=== PATIENT | male | born 1935 | race Caucasian/White ===

== ENCOUNTER 2017-11-02 09:49 | Inpatient (IN) | payer MEDICARE, MEDICAID ==
--- NOTE | 2017-11-02 10:27 | C.PDOC ---
History Of Present Illness 81-year-old male BIBA from for evaluation after two falls. As per EMS, patient had 2 fall at home, states he felt dizzy/light headed and fell to floor twice ( unable to describe specifics of falls). Patient has limited Polish, and is a poor historian. He is currently complaining of upper and mid back pain as well as generalized weakness. He denies chest pain, SOB, abdominal pain. - HPI Time Seen by Provider: 11/02/17 10:03 Chief Complaint (Nursing): Trauma History Per: Patient History/Exam Limitations: language barrier Injury Occurred (Timing): Just Before Arrival Past Medical History Reviewed: Historical Data, Nursing Documentation, Vital Signs Vital Signs: Last Vital Signs Temp 97.7 F 11/02/17 15:06 Pulse 73 11/02/17 15:06 Resp 20 11/02/17 15:06 BP 149/69 11/02/17 15:06 Pulse Ox 99 11/02/17 16:28 - Medical History PMH: Benign Prostatic Hyperplasia, HTN, Hypercholesterolemia, Seizures Family History: States: No Known Family Hx - Social History Hx Alcohol Use: No Hx Substance Use: No Review Of Systems Constitutional: Negative for: Fever Cardiovascular: Negative for: Chest Pain, Palpitations Respiratory: Negative for: Shortness of Breath Gastrointestinal: Negative for: Vomiting, Abdominal Pain Musculoskeletal: Negative for: Neck Pain, Back Pain Skin: Negative for: Rash Neurological: Positive for: Dizziness. Negative for: Weakness, Numbness, Headache Physical Exam - Physical Exam Appears: Well, Non-toxic, No Acute Distress Skin: Normal Color, Warm, Dry, No Rash Head: Atraumatic, Normacephalic, No Swelling, No Abrasion Eye(s): bilateral: Normal Inspection, PERRL, EOMI Oral Mucosa: Moist Neck: Normal, Normal ROM, No Midline Cervical Tenderness, No Paracervical Tenderness, No Step Off Deformity, Supple Cardiovascular: Rhythm Regular, No Murmur Respiratory: Normal Breath Sounds, No Rales, No Rhonchi, No Wheezing Gastrointestinal/Abdominal: Normal Exam, Bowel Sounds, Soft, No Tenderness Back: Other (Tenderness to palpation at the mid thoracic spine (approx T3-5 levels) and B/L posterior shoulders) Extremity: No Tenderness, No Pedal Edema, No Calf Tenderness, Capillary Refill ( < 2 sec all digits ), No Deformity (no abrasions/contusions of extremities noted ), Other (mild tenderness with pelvic rocking) Extremity: Bilateral: Normal Color And Temperature, Normal ROM Neurological/Psych: Normal Speech, Normal Cranial Nerves, Normal Motor, Normal Sensation, Normal Reflexes, Other (awake, alert, able to follow commands ) ED Course And Treatment - Laboratory Results Result Diagrams: 11/02/17 10:38 11/02/17 12:36 ECG: Interpreted By Me, Viewed By Me ECG Rhythm: Sinus Rhythm ECG Interpretation: No Acute Changes Interpretation Of ECG: Normal axis. No acute ST/T changes Rate From EC (bpm) O2 Sat by Pulse Oximetry: 99 (RA) Pulse Ox Interpretation: Normal - Other Rad CXR X-Ray: Viewed By Me, Read By Radiologist Interpretation: Accession No. : [id number]. Patient Name / ID : NILDA CARRERO V / [id number]. Exam Date : 11/02/2017 10:29:49 ( Approved ). Study Comment : Sex / Age : M / 81Y. Creator : Melvin Silver MD. Dictator : Senior Client Advisor : Title I Math Tutor : Melvin Silver MD. Approver2 : Report Date : 11/02/2017 13:17:01. My Comment : . PROCEDURE: CHEST RADIOGRAPH, 1 VIEW. HISTORY: FALL, DIZZY. COMPARISON: 05/16/2012. FINDINGS: LUNGS: Mild bibasilar atelectasis. PLEURA: No pneumothorax or pleural fluid seen. CARDIOVASCULAR: Heart size mildly enlarged. Interval placement bipolar pacemaker/ defibrillator. OSSEOUS STRUCTURES: No significant abnormalities. VISUALIZED UPPER ABDOMEN: Normal. OTHER FINDINGS: None. IMPRESSION: Mild bibasilar atelectasis. Cardiomegaly. Interval placement bipolar pacemaker defibrillator. THORACIC XRAY X-Ray: Viewed By Me, Read By Radiologist Interpretation: Accession No. : [id number]. Patient Name / ID : NILDA CARRERO / [id number]. Exam Date : 11/02/2017 10:49:49 ( Approved ). Study Comment : Sex / Age : M / 81Y. Creator : Melvin Silver MD. Dictator : Senior Client Advisor : Title I Math Tutor : Melvin Silver MD. Approver2 : Report Date : 11/02/2017 13:24:17. My Comment : . HISTORY: back pain after fall. COMPARISON: Correlation made with concurrent radiographs of the lumbar spine. . FINDINGS: BONES: There are anterior wedge deformities of at least a 2 upper /mid thoracic segments age-indeterminate. In addition, there are mild mild chronic appearing fish-mouth endplate deformities of several lower thoracic segments. DISC SPACES: Mild multilevel degenerative spondylosis. Changes include varying degrees of disc space narrowing endplate eburnation and anterolateral osteophyte formation. SOFT TISSUES: Normal. OTHER FINDINGS: None. IMPRESSION: There are anterior wedge deformities of at least a 2 upper/ mid thoracic segments age-indeterminate. In addition, there are mild mild chronic appearing fish-mouth endplate deformities of several lower thoracic segments. . If symptoms persist or acute fracture suspected clinically recommend followup CT scan. Note that this report was placed in [facility] review folder for followup LS SPINE XRAY X-Ray: Viewed By Me, Read By Radiologist Interpretation: Accession No. : [id number]. Patient Name / ID : NILDA CARRERO / [id number]. Exam Date : 11/02/2017 10:49:49 ( Approved ). Study Comment : Sex / Age : M / 81Y. Creator : Melvin Silver MD. Dictator : Senior Client Advisor : Title I Math Tutor : Melvin Silver MD. Approver2 : Report Date : 11/02/2017 13:15:54. My Comment : . PROCEDURE: Radiographs of the Lumbar Spine. HISTORY: Back pain following fall. COMPARISON: No prior study available for comparison however correlation made with concurrent radiographs of the thoracic spine. FINDINGS: BONES: The current study reveals a chronic appearing wedge compression fracture of the L3 segment with mild multilevel fish -mouth endplate deformities of the remaining upper lumbar and lower thoracic segments. DISC SPACES: Varying degrees of disc space narrowing particularly notable at the L5-S1 and L2-L3 levels. Endplate eburnation. The facets also hypertrophic L5-S1 through the L2-L3 levels. Multilevel anterolateral partially bridging osteophyte formation present. OTHER FINDINGS: Note made of multiple radiopaque radiation implant seeds distributed throughout the prostate gland. 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 Multilevel degenerative spondylosis with varying degrees of disc space narrowing, endplate eburnation with anterolateral partially bridging osteophyte formation. See above discussion for additional details and findings. HIPS/PELVIS X-Ray: Interpreted by Me, Viewed By Me (no fracture/listhesis) - CT Scan/US CT HEAD Other Rad Studies (CT/US): Read By Radiologist, Radiology Report Reviewed CT/US Interpretation: Accession No. : [id number]. Patient Name / ID : NILDA CARRERO V / [id number]. Exam Date : 11/02/2017 11:04:06 ( Approved ). Study Comment : Sex / Age : M / 81Y. Creator : Melvin Silver MD. Dictator : Senior Client Advisor : Title I Math Tutor : Melvin Silver MD. Approver2 : Report Date : 11/02/2017 12:25:02. My Comment : . PROCEDURE: CT HEAD WITHOUT CONTRAST. HISTORY: fall, dizziness. COMPARISON: No prior pacs. TECHNIQUE: Axial computed tomography images were obtained through the head/ brain without intravenous contrast. Radiation dose: Total exam DLP = 827.26 mGy-cm. This CT exam was performed using one or more of the following dose reduction techniques: Automated exposure control, adjustment of the mA and/or kV according to patient size, and/or use of iterative reconstruction technique. FINDINGS: HEMORRHAGE: No acute parenchymal, subarachnoid nor extra-axial hemorrhage. BRAIN: Significant diffuse/confluent chronic white matter ischemic changes seen extending peripherally into the deep and subcortical white matter both cerebral hemispheres. There is extension of these changes into the white matter tracts of both basal nuclei. 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 No obvious parenchymal nor extra-axial mass or collection seen on this noncontrast study. Moderate to significant generalized volume loss. Vascular calcifications both carotid siphons vertebral arteries and basilar artery. VENTRICLES: No obstructive hydrocephalus. CALVARIUM: Calvarium intact. PARANASAL SINUSES: Minimal mucosal thickening seen within multiple ethmoid air cells. . MASTOID AIR CELLS : Unremarkable as visualized. No inflammatory changes. OTHER FINDINGS: Changes of bilateral cataract surgery. . The mild exophthalmos. IMPRESSION: Significant diffuse/ confluent white matter, basal nuclei and probable brainstem ischemic changes. Moderate to significant generalized volume loss. CT THORACIC Other Rad Studies (CT/US): Read By Radiologist, Radiology Report Reviewed CT/US Interpretation: Accession No. : [id number]. Patient Name / ID : NILDA CARRERO V / [id number]. Exam Date : 11/02/2017 14:20:46 ( Approved ). Study Comment : Sex / Age : M / 81Y. Creator : Melvin Silver MD. Dictator : Senior Client Advisor : Title I Math Tutor : Melvin Silver MD. Approver2 : Report Date : 11/02/2017 15:45:56. My Comment : . PROCEDURE: CT Thoracic Spine without contrast. HISTORY: Rule out thoracic fx. COMPARISON: Correlation made with concurrent radiographs of the thoracic spine. Correlation also made with concurrent CT scan of the lumbar spine. TECHNIQUE: Axial computed tomography images were obtained of the thoracic spine without intravenous contrast. Coronal and sagittal reformatted images were created and reviewed. Radiation dose: Total exam DLP = 448.62 mGy-cm. This CT exam was performed using one or more of the following dose reduction techniques: Automated exposure control, adjustment of the mA and/or kV according to patient size, and/or use of iterative reconstruction technique. FINDINGS: VERTEBRAE: The current study reveals no acute compression fractures no retropulsed fragments. . Vertebral bodies exhibit relatively normal stature. Vertebral bodies and facets normally aligned. DISCS/SPINAL CANAL/NEURAL FORAMINA: Minor multilevel degenerative spondylosis with small marginal anterior/anterolateral osteophyte formation. Disc space heights relatively maintained. No disc herniation nor significant disc bulge. PARASPINAL SOFT TISSUES: Unremarkable. OTHER FINDINGS: Note made of asymmetric wall thickening of the distal aspect of the esophagus which is nonspecific. . Endoscopy followup recommended prudent to exclude esophagitis or other intrinsic/invasive wall lesion including esophageal carcinoma. . Large exophytic right renal cyst again noted. There are at least 2 hepatic cysts. Follow-up nonemergent abdominal ultrasound could be performed for further evaluation. . Suspect duodenal diverticulum. Bibasilar atelectasis and or scarring changes. IMPRESSION: No acute fractures. . Wall thickening of the distal aspect of the esophagus and EG junction. Findings could be due to esophagitis however other intrinsic/ invasive wall lesion including esophageal carcinoma should be excluded. Endoscopy followup recommended. See above discussion for additional findings. CT LUMBAR Other Rad Studies (CT/US): Read By Radiologist, Radiology Report Reviewed CT/US Interpretation: Accession No. : [id number]. Patient Name / ID : NILDA CARRERO V / [id number]. Exam Date : 11/02/2017 14:18:20 ( Approved ). Study Comment : Sex / Age : M / 81Y. Creator : Melvin Silver MD. Dictator : Senior Client Advisor : Title I Math Tutor : Melvin Silver MD. Approver2 : Report Date : 11/02/2017 15:40:11. My Comment : . PROCEDURE: CT Lumbar Spine without contrast. HISTORY: r rule out lumbar fracture. COMPARISON: None. TECHNIQUE: Axial computed tomography images were obtained of the lumbar spine without the use of intravenous contrast. Coronal and sagittal reformatted images were created and reviewed. Radiation dose: Total exam DLP = 253.19 mGy- cm. This CT exam was performed using one or more of the following dose reduction techniques: Automated exposure control, adjustment of the mA and/or kV according to patient size, and/or use of iterative reconstruction technique. FINDINGS: VERTEBRAE: Chronic appearing compression fracture L3 segment with anterior bridging osteophyte formation between the L2 and L3 segments. Minimal retropulsion posterior superior corner results in mild flattening of the ventral surface of thecal sac reducing the canal slightly. The remaining vertebral bodies otherwise exhibit normal stature. Vertebral bodies and facets normally aligned. DISCS/SPINAL CANAL/NEURAL FORAMINA: There is a small central and bilateral disc bulge L5-S1 level that extends slightly into the proximal inferior margins of both exit foramina and results in mild flattening of the ventral surface of thecal sac. . The central canal is slightly narrowed. Facets are mildly hypertrophic. Exit foramina are narrowed bilaterally. Minor posterior disc space narrowing seen at the L4-L5 level. Small broad-based bulge of the posterior annulus also flattens the ventral surface of thecal sac and extends into the proximal inferior margins of both exit foramina. Central canal is mild to moderately stenotic. Exit foramina are narrowed bilaterally. At the L2-L3 level, there is marrow minor broad-based bulge of the posterior annulus with more prominent bulging seen in the proximal aspect left exit foramen. Facets are slightly overgrown. Central canal appears adequate. Exit foramina adequate. At the L2-L3 level, disc material extends inferiorly to the partially collapsed superior L3 endplate. No disc herniation or significant disc bulge. Facets are slightly overgrown. Exit foramina adequate. PARASPINAL SOFT TISSUES: Paraspinal soft tissues unremarkable. Note made of a large exophytic cyst upper pole right kidney. There also appears to be a cyst posterior medial aspect right lobe liver which measures approximately 14 mm. The follow-up nonemergent abdominal ultrasound could be performed if further evaluation is required. OTHER FINDINGS: None. IMPRESSION : No acute fractures. Chronic anterior wedge compression fracture L3 segment as described. Mild multilevel degenerative spondylosis Progress Note: Blood work, EKG, Chest X-Ray, UA, XRays of thoracis and lumbar spine, Xrays of hips/pelvis ordered and reviewed. Patient's Na is 121, small IV NS bolus of 250 ml given and CMP repeated - NA improved to 124. Patient's son arrived in ED, states patient has been feeling weak for the past several days. Apparently also fell 3 days ago at home, and has h/o recurrent falls. PMD Dr. Jay Maciel. - Physician Consult Information Physician Contacted: Shawn Shook Outcome Of Conversation: Discussed patient with Dr. Shook (covers for Kim Maciel), agrees with admission for recurrent falls, hyponatremia, generalized weakness, acute vs chronic thoracic fxs. He is aware CT scans of thoracic/lumbar spine are pending. Disposition - Disposition Disposition: HOSPITALIZED Disposition Time: 13:37 Condition: FAIR - Clinical Impression Clinical Impression: Hyponatremia, Generalized weakness, Recurrent falls Critical Care Time - Critical Care Note Total Time (in mins): 35 Documented critical care: time excludes all time spent performing seperately billable procedures. - Scribe Statement The provider has reviewed the documentation as recorded by the Scribe (Jolene Dangelo) All medical record entries made by the Scribe were at my direction and personally dictated by me. I have reviewed the chart and agree that the record accurately reflects my personal performance of the history, physical exam, medical decision making, and the department course for this patient. I have also personally directed, reviewed, and agree with the discharge instructions and disposition. Decision To Admit - Pt Status Changed To: Hospital Disposition Of: Inpatient - Admit Certification Admit to Inpatient:: After my assessment, the patient will require hospitalization for at least two midnights. This is because of the severity of symptoms shown, intensity of services needed, and/or the medical risk in this patient being treated as an outpatient. - InPatient: Physician Admission Certification: I certify that this patient requires 2 or more midnights of care for the following reason:: see notes - . Bed Request Type: Telemetry Admitting Physician: Shawn Shook Patient Diagnosis: Hyponatremia, Generalized weakness, Recurrent falls
[2017-11-02 10:46] LABS: BASO # 0.1 K/uL (0.0-0.2); BASO % 1.5 % (0.0-2.0); EOS # 0.1 K/uL (0.0-0.7); EOS % 1.5 % (0.0-4.0); LYMPH # 0.8 K/uL (1.0-4.3); LYMPH % 11.5 % (20.0-40.0); MEAN CELL VOLUME 86.5 fL (80.0-94.0); MEAN CORPUSCULAR HEMOGLOBIN 30.5 pg (27.0-31.0); MEAN CORPUSCULAR HGB CONC 35.2 g/dL (33.0-37.0); MEAN PLATELET VOLUME 7.8 fL (7.2-11.7); MONO # 1.1 K/uL (0.0-0.8); MONO % 15.8 % (0.0-10.0); NEUT % 69.7 % (50.0-75.0); NRBC % 0.1 % (0.0-2.0); RBC 3.62 Mil/uL (4.40-5.90); RED CELL DISTRIBUTION WIDTH 12.2 % (11.5-14.5); WHITE BLOOD COUNT 7.1 K/uL (4.8-10.8)
[2017-11-02 10:53] LABS: INR 1.1; PROTHROMBIN TIME 12.4 SECONDS (9.7-12.2)
[2017-11-02 10:56] LABS: ALB/GLOB RATIO 1.4 (1.0-2.1); ALBUMIN 3.7 g/dL (3.5-5.0); ALT/SGPT 23 U/L (21-72); AST/SGOT 23 U/L (17-59); BLOOD UREA NITROGEN 16 mg/dL (9-20); GFR AFRICAN-AMERICAN > 60; GFR NON-AFRICAN AMERICAN > 60
[2017-11-02 10:58] LABS: URINE BACTERIA RARE (<OCC); URINE BILIRUBIN NEGATIVE (NEGATIVE); URINE BLOOD NEGATIVE (NEGATIVE); URINE CLARITY Clear (Clear); URINE COLOR Yellow (YELLOW); URINE GLUCOSE (UA) NORMAL (Normal); URINE LEUKOCYTE ESTERASE TRACE Leu/uL (Negative); URINE PROTEIN 1+ mg/dL (NEGATIVE); URINE UROBILINOGEN NORMAL mg/dL (0.2-1.0)
[2017-11-02] MEDS ORDERED: Sodium Chloride 0.9% 250 ML IV ONE (11:08)
[2017-11-02 11:36] LABS: SQUAMOUS EPITHIAL < 1 /hpf (0-5)
[2017-11-02] MEDS ORDERED: Potassium Chloride 20 mEq ER Tab PO STA ×2 (12:16)
--- NOTE | 2017-11-02 12:26 | CT ---
PROCEDURE: CT HEAD WITHOUT CONTRAST. HISTORY: fall, dizziness COMPARISON: No prior pacs TECHNIQUE: Axial computed tomography images were obtained through the head/brain without intravenous contrast. Radiation dose: Total exam DLP = 827.26 mGy-cm. This CT exam was performed using one or more of the following dose reduction techniques: Automated exposure control, adjustment of the mA and/or kV according to patient size, and/or use of iterative reconstruction technique. FINDINGS: HEMORRHAGE: No acute parenchymal, subarachnoid nor extra-axial hemorrhage. BRAIN: Significant diffuse/confluent chronic white matter ischemic changes seen extending peripherally into the deep and subcortical white matter both cerebral hemispheres. There is extension of these changes into the white matter tracts of both basal nuclei. 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 No obvious parenchymal nor extra-axial mass or collection seen on this noncontrast study. Moderate to significant generalized volume loss. Vascular calcifications both carotid siphons vertebral arteries and basilar artery. VENTRICLES: No obstructive hydrocephalus. CALVARIUM: Calvarium intact PARANASAL SINUSES: Minimal mucosal thickening seen within multiple ethmoid air cells. . MASTOID AIR CELLS: Unremarkable as visualized. No inflammatory changes. OTHER FINDINGS: Changes of bilateral cataract surgery. . The mild exophthalmos. IMPRESSION: Significant diffuse/ confluent white matter, basal nuclei and probable brainstem ischemic changes. Moderate to significant generalized volume loss.
[2017-11-02] MEDS ORDERED: Potassium Chloride 20 mEq ER Tab PO ONE (12:33)
[2017-11-02 12:51] LABS: ALB/GLOB RATIO 1.3 (1.0-2.1); ALBUMIN 3.7 g/dL (3.5-5.0); ALT/SGPT 26 U/L (21-72); AST/SGOT 23 U/L (17-59); BLOOD UREA NITROGEN 16 mg/dL (9-20); CALCIUM 9.2 mg/dl (8.6-10.4); GFR AFRICAN-AMERICAN > 60; GFR NON-AFRICAN AMERICAN > 60
--- NOTE | 2017-11-02 13:17 | RAD ---
PROCEDURE: Radiographs of the Lumbar Spine. HISTORY: Back pain following fall. COMPARISON: No prior study available for comparison however correlation made with concurrent radiographs of the thoracic spine. FINDINGS: BONES: The current study reveals a chronic appearing wedge compression fracture of the L3 segment with mild multilevel fish-mouth endplate deformities of the remaining upper lumbar and lower thoracic segments. DISC SPACES: Varying degrees of disc space narrowing particularly notable at the L5-S1 and L2-L3 levels. Endplate eburnation. The facets also hypertrophic L5-S1 through the L2-L3 levels. Multilevel anterolateral partially bridging osteophyte formation present. OTHER FINDINGS: Note made of multiple radiopaque radiation implant seeds distributed throughout the prostate gland. 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 Multilevel degenerative spondylosis with varying degrees of disc space narrowing, endplate eburnation with anterolateral partially bridging osteophyte formation. See above discussion for additional details and findings.
--- NOTE | 2017-11-02 13:18 | RAD ---
PROCEDURE: CHEST RADIOGRAPH, 1 VIEW HISTORY: FALL, DIZZY COMPARISON: 05/16/2012. FINDINGS: LUNGS: Mild bibasilar atelectasis. PLEURA: No pneumothorax or pleural fluid seen. CARDIOVASCULAR: Heart size mildly enlarged. Interval placement bipolar pacemaker/ defibrillator. OSSEOUS STRUCTURES: No significant abnormalities. VISUALIZED UPPER ABDOMEN: Normal. OTHER FINDINGS: None. IMPRESSION: Mild bibasilar atelectasis. Cardiomegaly. Interval placement bipolar pacemaker defibrillator.
--- NOTE | 2017-11-02 13:26 | RAD ---
HISTORY: back pain after fall COMPARISON: Correlation made with concurrent radiographs of the lumbar spine. . FINDINGS: BONES: There are anterior wedge deformities of at least a 2 upper/mid thoracic segments age-indeterminate. In addition, there are mild mild chronic appearing fish-mouth endplate deformities of several lower thoracic segments. DISC SPACES: Mild multilevel degenerative spondylosis. Changes include varying degrees of disc space narrowing endplate eburnation and anterolateral osteophyte formation. SOFT TISSUES: Normal. OTHER FINDINGS: None. IMPRESSION: There are anterior wedge deformities of at least a 2 upper/mid thoracic segments age-indeterminate. In addition, there are mild mild chronic appearing fish-mouth endplate deformities of several lower thoracic segments. . If symptoms persist or acute fracture suspected clinically recommend followup CT scan. Note that this report was placed in [facility] review folder for followup
[2017-11-02] MEDS ORDERED: Sodium Chloride 0.9% 1,000 ML IV ONE (13:33)
--- NOTE | 2017-11-02 14:09 | RAD ---
PROCEDURE: Radiographs of the pelvis and bilateral hips HISTORY: Status post fall with pain COMPARISON: Correlation made with concurrent radiographs of the lumbar spine FINDINGS: BONES: Pelvis: Unremarkable. Right hip:Unremarkable. Left hip:Unremarkable. JOINTS: Right hip: Minimal joint space narrowing with slight spurring superolateral margin right acetabular roof. Left hip: Minimal joint space narrowing with slight spurring superolateral margin left acetabular roof. Sacroiliac Joints: Unremarkable. Pubic symphysis: Unremarkable. SOFT TISSUES: Note again made of multiple small radiopaque radiation implant seeds distributed throughout the prostate gland OTHER FINDINGS: None. IMPRESSION: No evidence of acute displaced fracture nor dislocation. Minimal spurring of the superolateral margins of the acetabular roofs and minimal joint space narrowing.
--- NOTE | 2017-11-02 14:57 | CP.PCM.HP ---
History of Present Illness - History of Present Illness History of Present Illness: COMPREHENSIVE HISTORY & PHYSICAL EXAM HPI Patient is a 81 years old [place]ian male with a history of hypertension on diuretics had a couple of syncopal episode at home. Patient was brought to the emergency room workup showed negative neurocardiac system. Patient was complaining of back pain and x-ray showed some bad shape fractures in the vertebra and CAT scan of the spine is pending. Laboratory showed the patient had a low sodium of 123. Patient was given some IV bolus sodium still remains about 124. Urine osmolality is very low Patient has history of hypertension and a history of previous history of syncopal episodes PAST HIST. Hypertension, hypertrophic prostate PERSONAL HIST: Smoking. N Alcohol. N Allergy N Travel_- . FAMILY HIST : ROS : Constitutional: Negative for weight change, chills, night sweats, fatigue and usage of assist device. Eyes: Negative for redness, swelling, itching, discharge, vision changes, blurry vision, double vision, glaucoma, cataracts, Ears: Negative for hearing loss, ringing, , tinnitus, vertigo Nose: Negative for rhinorrhea, stuffiness, sniffing, itching, postnasal drip, discoloration, nasal congestion and epistaxis. Throat: Negative for throat clearing, sore throat, hoarseness, difficulty swallowing and difficulty speaking. Respiratory: Negative for cough, , sputum production, chest tightness, wheezing, pleuritic chest pain ,daytime somnolence, chronic cough, hemoptysis, snoring at night, Cardiovascular: Negative for chest pain, palpitations, orthopnea, PND, Edema of legs, leg cramps, angina, claudication, , irregular heartbeat, Neurology: Negative for irritability, muscle weakness, numbness and tingling, seizures, tremors, migraines, slurred speech, recurrent headaches Gastrointestinal: Negative for difficulty swallowing, diarrhea, constipation, black stools, rectal bleeding, nausea, flatulence, reflux, poor appetite, changes in bowel habits, abdominal pain Genitourinary: Negative for frequent urination, hematuria, discharge, incontinence, urinary retention, frequent UTI, Psychiatric: Negative for depression, anxiety/panic, suicidal tendencies, Musculoskeletal: Negative for swollen joints, back pain, , neck pain, morning stiffness of joints, . Skin: Negative for rash, ulcers, itching, dry skin and pigmented lesions. P/E: Constitutional: Appears stated age and in no apparent distress. Head: Normocephalic. Ears: External ear canals patent without inflammation. Tympanic membranes intact with normal light reflex and landmark. Eyes: Pupils are central, bilaterally equal, symmetrical and reacts to light with normal movements and no icterus or pallor. Nose: External nares are patent. Mucosa is pink Mouth-Throat: Good general appearance and condition. No post-pharyngeal/oropharyngeal erythema and tonsillar hypertrophy. Good dental hygiene. Neck-Lymphatic: Neck is supple with normal ROM, no thyromegaly, lymph nodes or masses. JVD is normal with no carotid bruit. Lungs: Clear to percussion and auscultation with bilateral normal air entry. Cardiovascular: S1 and S2 are normal with no murmurs, gallops and rub. GI Exam: No hepatomegaly. Abdomen is soft and non-tender. No Organomegaly , masses or hernias are evident and bowel sounds are normal and active. Neurology: Higher function and all cranial nerves intact, with no gross motor or sensory deficit. Superficial and deep reflexes are normal with downwards planters. No cerebellar deficit with normal gait. Musculoskeletal: No tender spots with normal curvature of the spine with no swelling or restricted ROM of the small and large joints. Extremities: Homans sign absent. Intact pulses with no pitting edema, calf tenderness or skin color changes. Skin: No rash, eruptions or abnormal skin pigmentation LAB/RADIOLOGY: ASSESMENT : 2 syncopal episode Hyponatremia probably secondary to hydrochlorothiazide PLAN: See orders Present on Admission - Present on Admission Any Indicators Present on Admission: No Past Patient History - Past Social History Smoking Status: Never Smoked - CARDIAC Hx Hypercholesterolemia: Yes Hx Hypertension: Yes - NEUROLOGICAL Hx Seizures: Yes - PSYCHIATRIC Hx Substance Use: No Meds Allergies/Adverse Reactions: Allergies Allergy/AdvReac Type Severity Reaction Status Date / Time No Known Allergies Allergy Verified 11/02/17 10:22 Results - Vital Signs Recent Vital Signs: Last Vital Signs Temp 98.4 F 11/02/17 14:37 Pulse 72 11/02/17 14:37 Resp 18 11/02/17 14:37 BP 134/60 11/02/17 14:37 Pulse Ox 97 11/02/17 14:37 - Labs Result Diagrams: 11/02/17 10:38 11/02/17 12:36 Labs: Laboratory Results - last 24 hr 0611/02/17 11/02/17 10:38 10:38 10:38 WBC 7.1 RBC 3.62 L Hgb 11.0 L Hct 31.4 L MCV 86.5 MCH 30.5 MCHC 35.2 RDW 12.2 Plt Count 209 MPV 7.8 Neut % (Auto) 69.7 Lymph % (Auto) 11.5 L [place] % (Auto) 15.8 H Eos % (Auto) 1.5 Baso % (Auto) 1.5 Neut # (Auto) 5.0 Lymph # (Auto) 0.8 L [place] # (Auto) 1.1 H Eos # (Auto) 0.1 Baso # (Auto) 0.1 PT 12.4 H INR 1.1 APTT 27 Sodium 121 L Potassium 3.2 L Chloride 85 L Carbon Dioxide 27 Anion Gap 12 BUN 16 Creatinine 1.0 Est GFR ( Amer) > 60 Est GFR (Non-Af Amer) > 60 Random Glucose 113 H Serum Osmolality Calcium 9.0 Total Bilirubin 0.6 AST 23 ALT 23 Alkaline Phosphatase 43 Total Creatine Kinase 145 CK-MB (Mass) 1.30 Troponin I 0.0170 Total Protein 6.5 Albumin 3.7 Globulin 2.7 Albumin/Globulin Ratio 1.4 Urine Color Urine Clarity Urine pH Ur Specific [place] Urine Protein Urine Glucose (UA) Urine Ketones Urine Blood Urine Nitrate Urine Bilirubin Urine Urobilinogen Ur Leukocyte Esterase Urine WBC (Auto) Urine RBC (Auto) Ur Squamous Epith Cells Urine Bacteria Hyaline Casts Urine Osmolality Ur Random Sodium Ur Random Potassium 11/02/17 11/02/17 11/02/17 10:49 11:28 11:43 WBC RBC Hgb Hct MCV MCH MCHC RDW Plt Count MPV Neut % (Auto) Lymph % (Auto) [place] % (Auto) Eos % (Auto) Baso % (Auto) Neut # (Auto) Lymph # (Auto) [place] # (Auto) Eos # (Auto) Baso # (Auto) PT INR APTT Sodium Potassium Chloride Carbon Dioxide Anion Gap BUN Creatinine Est GFR ( Amer) Est GFR (Non-Af Amer) Random Glucose Serum Osmolality 262 L Calcium Total Bilirubin AST ALT Alkaline Phosphatase Total Creatine Kinase CK-MB (Mass) Troponin I Total Protein Albumin Globulin Albumin/Globulin Ratio Urine Color Yellow Urine Clarity Clear Urine pH 5.0 Ur Specific [place] 1.009 Urine Protein 1+ H Urine Glucose (UA) Normal Urine Ketones Negative Urine Blood Negative Urine Nitrate Negative Urine Bilirubin Negative Urine Urobilinogen Normal Ur Leukocyte Esterase Trace Urine WBC (Auto) 3 Urine RBC (Auto) < 1 Ur Squamous Epith Cells < 1 Urine Bacteria Rare Hyaline Casts 3-5 H Urine Osmolality 280 L Ur Random Sodium 22 Ur Random Potassium 23.4 11/02/17 12:36 WBC RBC Hgb Hct MCV MCH MCHC RDW Plt Count MPV Neut % (Auto) Lymph % (Auto) [place] % (Auto) Eos % (Auto) Baso % (Auto) Neut # (Auto) Lymph # (Auto) [place] # (Auto) Eos # (Auto) Baso # (Auto) PT INR APTT Sodium 124 L Potassium 3.4 L Chloride 87 L Carbon Dioxide 28 Anion Gap 11 BUN 16 Creatinine 0.9 Est GFR ( Amer) > 60 Est GFR (Non-Af Amer) > 60 Random Glucose 112 H Serum Osmolality Calcium 9.2 Total Bilirubin 0.7 AST 23 ALT 26 Alkaline Phosphatase 48 Total Creatine Kinase CK-MB (Mass) Troponin I Total Protein 6.5 Albumin 3.7 Globulin 2.8 Albumin/Globulin Ratio 1.3 Urine Color Urine Clarity Urine pH Ur Specific [place] Urine Protein Urine Glucose (UA) Urine Ketones Urine Blood Urine Nitrate Urine Bilirubin Urine Urobilinogen Ur Leukocyte Esterase Urine WBC (Auto) Urine RBC (Auto) Ur Squamous Epith Cells Urine Bacteria Hyaline Casts Urine Osmolality Ur Random Sodium Ur Random Potassium
--- NOTE | 2017-11-02 15:41 | CT ---
PROCEDURE: CT Lumbar Spine without contrast HISTORY: r rule out lumbar fracture. COMPARISON: None. TECHNIQUE: Axial computed tomography images were obtained of the lumbar spine without the use of intravenous contrast. Coronal and sagittal reformatted images were created and reviewed. Radiation dose: Total exam DLP = 253.19 mGy-cm. This CT exam was performed using one or more of the following dose reduction techniques: Automated exposure control, adjustment of the mA and/or kV according to patient size, and/or use of iterative reconstruction technique. FINDINGS: VERTEBRAE: Chronic appearing compression fracture L3 segment with anterior bridging osteophyte formation between the L2 and L3 segments. Minimal retropulsion posterior superior corner results in mild flattening of the ventral surface of thecal sac reducing the canal slightly. The remaining vertebral bodies otherwise exhibit normal stature. Vertebral bodies and facets normally aligned. DISCS/SPINAL CANAL/NEURAL FORAMINA: There is a small central and bilateral disc bulge L5-S1 level that extends slightly into the proximal inferior margins of both exit foramina and results in mild flattening of the ventral surface of thecal sac. . The central canal is slightly narrowed. Facets are mildly hypertrophic. Exit foramina are narrowed bilaterally. Minor posterior disc space narrowing seen at the L4-L5 level. Small broad-based bulge of the posterior annulus also flattens the ventral surface of thecal sac and extends into the proximal inferior margins of both exit foramina. Central canal is mild to moderately stenotic. Exit foramina are narrowed bilaterally. At the L2-L3 level, there is marrow minor broad-based bulge of the posterior annulus with more prominent bulging seen in the proximal aspect left exit foramen. Facets are slightly overgrown. Central canal appears adequate. Exit foramina adequate. At the L2-L3 level, disc material extends inferiorly to the partially collapsed superior L3 endplate. No disc herniation or significant disc bulge. Facets are slightly overgrown. Exit foramina adequate. PARASPINAL SOFT TISSUES: Paraspinal soft tissues unremarkable. Note made of a large exophytic cyst upper pole right kidney. There also appears to be a cyst posterior medial aspect right lobe liver which measures approximately 14 mm. The follow-up nonemergent abdominal ultrasound could be performed if further evaluation is required. OTHER FINDINGS: None. IMPRESSION: No acute fractures. Chronic anterior wedge compression fracture L3 segment as described. Mild multilevel degenerative spondylosis
--- NOTE | 2017-11-02 15:47 | CT ---
PROCEDURE: CT Thoracic Spine without contrast HISTORY: Rule out thoracic fx COMPARISON: Correlation made with concurrent radiographs of the thoracic spine. Correlation also made with concurrent CT scan of the lumbar spine TECHNIQUE: Axial computed tomography images were obtained of the thoracic spine without intravenous contrast. Coronal and sagittal reformatted images were created and reviewed. Radiation dose: Total exam DLP = 448.62 mGy-cm. This CT exam was performed using one or more of the following dose reduction techniques: Automated exposure control, adjustment of the mA and/or kV according to patient size, and/or use of iterative reconstruction technique. FINDINGS: VERTEBRAE: The current study reveals no acute compression fractures no retropulsed fragments. . Vertebral bodies exhibit relatively normal stature. Vertebral bodies and facets normally aligned. DISCS/SPINAL CANAL/NEURAL FORAMINA: Minor multilevel degenerative spondylosis with small marginal anterior/anterolateral osteophyte formation. Disc space heights relatively maintained. No disc herniation nor significant disc bulge. PARASPINAL SOFT TISSUES: Unremarkable. OTHER FINDINGS: Note made of asymmetric wall thickening of the distal aspect of the esophagus which is nonspecific. . Endoscopy followup recommended prudent to exclude esophagitis or other intrinsic/invasive wall lesion including esophageal carcinoma. . Large exophytic right renal cyst again noted. There are at least 2 hepatic cysts. Follow-up nonemergent abdominal ultrasound could be performed for further evaluation. . Suspect duodenal diverticulum. Bibasilar atelectasis and or scarring changes. IMPRESSION: No acute fractures. . Wall thickening of the distal aspect of the esophagus and EG junction. Findings could be due to esophagitis however other intrinsic/invasive wall lesion including esophageal carcinoma should be excluded. Endoscopy followup recommended. See above discussion for additional findings.
[2017-11-02] MEDS: Dextrose 5%/0.45% NS 1,000 ML IV SCH (15:55)
[2017-11-03] MEDS: Dextrose 5%/0.45% NS 1,000 ML IV SCH ×3 (00:38→21:39)
[2017-11-03 07:51] LABS: ALB/GLOB RATIO 1.1 (1.0-2.1); ALBUMIN 3.2 g/dL (3.5-5.0); ALT/SGPT 21 U/L (21-72); AST/SGOT 27 U/L (17-59); BLOOD UREA NITROGEN 13 mg/dL (9-20); CALCIUM 8.7 mg/dl (8.6-10.4); GFR AFRICAN-AMERICAN > 60; GFR NON-AFRICAN AMERICAN > 60
--- NOTE | 2017-11-03 15:37 | CP.PCM.PN ---
Subjective - Date & Time of Evaluation Date of Evaluation: 11/03/17 Time of Evaluation: 15:36 - Subjective Subjective: Cardio, neuro workup in progress. On reviewing chart it was determined patient has a pacemaker, MRI is canceled Vital signs are stable in current blood tests are normal Objective - Vital Signs/Intake and Output Vital Signs (last 24 hours): Temp Pulse Resp BP Pulse Ox 98.3 F 62 20 149/64 99 11/03/17 07:00 11/03/17 07:30 11/03/17 07:00 11/03/17 07:00 11/03/17 07:00 Intake and Output: 11/03/17 11/03/17 11:59 23:59 Intake Total 800 1150 Output Total 550 Balance 250 1150 - Medications Medications: Current Medications Amlodipine Besylate (Norvasc) 5 mg PO DAILY [facility] Last Admin: 11/03/17 09:12 Dose: 5 mg Dextrose/Sodium Chloride (Dextrose 5%/0.45% Ns 1000 Ml) 1,000 mls @ 100 mls/hr IV .Q10H [facility] Last Admin: 11/03/17 12:43 Dose: 100 mls/hr Levetiracetam (Keppra) 750 mg PO BID [facility] Last Admin: 11/03/17 09:07 Dose: 750 mg Oxybutynin Chloride (Ditropan Xl) 5 mg PO DAILY [facility] Last Admin: 11/03/17 09:16 Dose: 5 mg Rosuvastatin Calcium (Crestor) 5 mg PO HS [facility] Last Admin: 11/02/17 21:31 Dose: 5 mg Tamsulosin HCl (Flomax) 0.4 mg PO BID [facility] Last Admin: 11/03/17 09:08 Dose: 0.4 mg - Labs Labs: 11/02/17 10:38 11/03/17 06:53 PT 12.4 SECONDS (9.7-12.2) H 11/02/17 10:38 INR 1.1 11/02/17 10:38 APTT 27 SECONDS (21-34) 11/02/17 10:38
[2017-11-04] MEDS: Dextrose 5%/0.45% NS 1,000 ML IV SCH ×3 (08:00→21:29)
--- NOTE | 2017-11-04 14:00 | CP.PCM.PN ---
Subjective - Date & Time of Evaluation Date of Evaluation: 11/04/17 Time of Evaluation: 13:58 - Subjective Subjective: CHIEF COMPLAINTS TODAY : Patient has no further dizziness was near syncopal episodes in the hospital. ROS. HEENT : N. Resp : No cough, wheezing ,pleuritic CP ,or hemoptysis Cardio : No anginal CP, PND, orthopnea, palpitation GI : No abd.pain, n/v ,diarrhea or GI bleeding . BEHAVIORAL HEALTH TECH : No headache, vertigo, focal deficit. Musculoskel : No joint swelling , Derm : No rash Psych : Normal affect. Ext : No swelling ,calf pain PE. Pt. is alert awake in no distress. V.S As noted in the chart Head ,ear nose,throat and eyes : Normal. Neck : Supple with normal carotids. Lungs: Clear air entry. Heart : S1 & S2 normal with S4. No murmur. Abd : Soft non tender with normal bowel sounds. Neuro : Moves all ext. with no localized deficit. Ext : No edema with intact pulses.Non tender calves Derm : No rashes or decubitus ulcer. LABS/RADIOLOGY: ASSESSMENT/PLAN : MRI of the head was canceled due to patient having a pacemaker. Awaiting other test results. Objective - Vital Signs/Intake and Output Vital Signs (last 24 hours): Temp Pulse Resp BP Pulse Ox 97.8 F 75 18 161/72 H 98 11/04/17 07:00 11/04/17 07:47 11/04/17 07:00 11/04/17 07:00 11/04/17 07:00 - Medications Medications: Current Medications Amlodipine Besylate (Norvasc) 5 mg PO DAILY [facility] Last Admin: 11/04/17 09:40 Dose: 5 mg Heparin Sodium (Porcine) (Heparin) 5,000 units SC Q8 [facility] Dextrose/Sodium Chloride (Dextrose 5%/0.45% Ns 1000 Ml) 1,000 mls @ 100 mls/hr IV .Q10H [facility] Last Admin: 11/04/17 08:00 Dose: 100 mls/hr Levetiracetam (Keppra) 750 mg PO BID [facility] Last Admin: 11/04/17 09:40 Dose: 750 mg Oxybutynin Chloride (Ditropan Xl) 5 mg PO DAILY [facility] Last Admin: 11/04/17 09:41 Dose: 5 mg Rosuvastatin Calcium (Crestor) 5 mg PO HS [facility] Last Admin: 11/03/17 21:38 Dose: 5 mg Tamsulosin HCl (Flomax) 0.4 mg PO BID [facility] Last Admin: 11/04/17 09:40 Dose: 0.4 mg - Labs Labs: 11/02/17 10:38 11/03/17 06:53 PT 12.4 SECONDS (9.7-12.2) H 11/02/17 10:38 INR 1.1 11/02/17 10:38 APTT 27 SECONDS (21-34) 11/02/17 10:38
--- NOTE | 2017-11-04 17:36 | VASCLAB ---
PROCEDURE: HISTORY: frequent falls COMPARISON: None available. TECHNIQUE: Grayscale and duplex Doppler evaluation of the cervical carotid and vertebral arteries were performed. The common carotid, carotid bifurcations and cervical Internal Carotid Artery (ICA) and proximal External Carotid Artery (ECA) were evaluated. The vertebral arteries were evaluated for gross patency and flow direction. Report prepared by Donya Maciel RDCS, S FINDINGS: RIGHT CAROTID ARTERIES: 1. Common Carotid Artery: No significant focal plaque formation of the right common carotid artery. Maximum Peak Systolic velocity: 91 cm/sec: End-diastolic velocity 0 cm/sec. 2. Carotid Bifurcation: Heterogeneous plaque formation. Maximum Peak Systolic velocity: 140 cm/sec: End-diastolic velocity 23 cm/sec. 3. Internal Carotid Artery: Plaque description: 3.1. Proximal Segment: Peak systolic velocity 116 cm/sec: End-diastolic velocity 18 cm/sec - % stenosis 3.2. Middle Segment: Peak systolic velocity 48 cm/sec: End-diastolic velocity 9 cm/sec - % stenosis 3.3. Distal Segment: Peak systolic velocity 54 cm/sec: End-diastolic velocity 10 cm/sec - % stenosis 4. External Carotid Artery: No significant focal plaque formation. Peak systolic velocity 118 cm/sec 5. ICA/CCA Ratio: 1.1 LEFT CAROTID ARTERIES: 1. Common Carotid Artery: No significant focal plaque formation of the left common carotid artery. Maximum Peak Systolic velocity: 110 cm/sec: End-diastolic velocity 8 cm/sec. 2. Carotid Bifurcation: plaque formation. Maximum Peak Systolic velocity: 71 cm/sec: End-diastolic velocity 13 cm/sec. 3. Internal Carotid Artery: Plaque description: 3.1. Proximal Segment: Peak systolic velocity 79 cm/sec: End-diastolic velocity 13 cm/sec - % stenosis 3.2. Middle Segment: Peak systolic velocity 140 cm/sec: End-diastolic velocity 21 cm/sec - % stenosis 3.3. Distal Segment: Peak systolic velocity 48 cm/sec: End-diastolic velocity 10 cm/sec - % stenosis 4. External Carotid Artery: No significant focal plaque formation. Peak systolic velocity 106 cm/sec 5. ICA/CCA Ratio: 2.0 VERTEBRAL ARTERIES: 1. Right Vertebral Artery: The right vertebral artery flow direction is antegrade. 2. Left Vertebral Artery: The left vertebral artery flow direction is antegrade. OTHER FINDINGS: 1. Right Brachial Blood pressure: 130 mmHg. 2. Left Brachial Blood pressure: 128 mmHg. IMPRESSION: Per NASCET criteria, less than 50 percent stenosis of the internal carotid arteries, bilaterally.
--- NOTE | 2017-11-04 23:30 | CARD ---
APPROVED REPORT EKG Measurement Heart [id number] CO [id number] <Conclusion> Normal sinus rhythm Normal ECG
[2017-11-05 07:46] LABS: MEAN CELL VOLUME 87.6 fL (80.0-94.0); MEAN CORPUSCULAR HEMOGLOBIN 31.1 pg (27.0-31.0); MEAN CORPUSCULAR HGB CONC 35.5 g/dL (33.0-37.0); MEAN PLATELET VOLUME 7.6 fL (7.2-11.7); RBC 3.84 Mil/uL (4.40-5.90); RED CELL DISTRIBUTION WIDTH 12.2 % (11.5-14.5); WHITE BLOOD COUNT 7.9 K/uL (4.8-10.8)
[2017-11-05 08:01] LABS: BLOOD UREA NITROGEN 9 mg/dL (9-20); CALCIUM 8.3 mg/dl (8.6-10.4); GFR AFRICAN-AMERICAN > 60; GFR NON-AFRICAN AMERICAN > 60
[2017-11-05] MEDS: Dextrose 5%/0.45% NS 1,000 ML IV SCH (09:37)
--- NOTE | 2017-11-05 12:12 | RAD ---
PROCEDURE: Radiographs of the Right Shoulder HISTORY: r/o fx COMPARISON: No prior. FINDINGS: BONES: No acute fracture. JOINTS: Glenohumeral and acromioclavicular joint degenerative changes. SOFT TISSUES: Normal. OTHER FINDINGS: None. IMPRESSION: No demonstrated fracture or dislocation. Degenerative changes.
--- NOTE | 2017-11-05 14:15 | CP.PCM.PN ---
Subjective - Date & Time of Evaluation Date of Evaluation: 11/05/17 Time of Evaluation: 14:12 - Subjective Subjective: CHIEF COMPLAINTS TODAY : Patient has difficulty ambulating because of the severe weakness of the lower extremity. Patient also has some tremors on walking. Complaining of shoulder pain right side. The x-ray of the right shoulder is negative for any fracture or dislocation. ROS. HEENT : N. Resp : No cough, wheezing ,pleuritic CP ,or hemoptysis Cardio : No anginal CP, PND, orthopnea, palpitation GI : No abd.pain, n/v ,diarrhea or GI bleeding . [employer] : No headache, vertigo, focal deficit. Musculoskel : No joint swelling , Derm : No rash Psych : Normal affect. Ext : No swelling ,calf pain PE. Pt. is alert awake in no distress. V.S As noted in the chart Head ,ear nose,throat and eyes : Normal. Neck : Supple with normal carotids. Lungs: Clear air entry. Heart : S1 & S2 normal with S4. No murmur. Abd : Soft non tender with normal bowel sounds. Neuro : weakness of the lower extremities with some tremors. Reflexes are down plantars are equivocal. Ext : No edema with intact pulses.Non tender calves Derm : No rashes or decubitus ulcer. LABS/RADIOLOGY:carotid Dopplers showed less than 50% occlusion in both internal carotid ASSESSMENT/PLAN : continue physical therapy and rehab as per family's choice. We will get a neuro evaluation if anything else has to be added for the current therapy. Objective - Vital Signs/Intake and Output Vital Signs (last 24 hours): Temp Pulse Resp BP Pulse Ox 97.8 F 96 H 20 164/71 H 98 11/05/17 04:45 11/05/17 12:41 11/05/17 04:45 11/05/17 04:45 11/05/17 04:45 Intake and Output: 11/05/17 11/05/17 11:59 23:59 Intake Total 900 Output Total 1000 Balance -100 - Medications Medications: Current Medications Amlodipine Besylate (Norvasc) 5 mg PO DAILY [facility] Last Admin: 11/05/17 09:38 Dose: 5 mg Aspirin (Ecotrin) 81 mg PO DAILY [facility] Heparin Sodium (Porcine) (Heparin) 5,000 units SC Q8 [facility] Last Admin: 11/05/17 13:26 Dose: 5,000 units Levetiracetam (Keppra) 750 mg PO BID [facility] Last Admin: 11/05/17 09:38 Dose: 750 mg Oxybutynin Chloride (Ditropan Xl) 5 mg PO DAILY [facility] Last Admin: 11/05/17 09:38 Dose: 5 mg Rosuvastatin Calcium (Crestor) 5 mg PO HS [facility] Last Admin: 11/04/17 21:25 Dose: 5 mg Tamsulosin HCl (Flomax) 0.4 mg PO DAILY [facility] - Labs Labs: 11/05/17 07:41 11/05/17 07:41 PT 12.4 SECONDS (9.7-12.2) H 11/02/17 10:38 INR 1.1 11/02/17 10:38 APTT 27 SECONDS (21-34) 11/02/17 10:38
--- NOTE | 2017-11-05 22:06 | CP.PCM.CON ---
History of Present Illness - History of Present Illness History of Present Illness: PGY1 Neurology Consult for Dr. Kothari's service [employer] services: [id number] 81 yo English M with PMHx of HTN on diuretics and past syncopal episodes presents with new onset syncopal episode at home. Pt states he felt dizzy/ lightheaded while in the bathroom and fell to floor. Denies LOC or head trauma but unable to describe specifics of the floor. Patient has limited Lithuanian and is poor historian. Neurology consulted to r/o acute CVA. PMHx: syncopal episodes, HTN, BPH PSHx: pacemaker implant Family Hx: no known family hx Social Hx: no alcohol, tobacco, drug use Allergies: NKDA Medications: reviewed PMD: none Review of Systems - Review of Systems All systems: reviewed and no additional remarkable complaints except Review of Systems: weakness, dizziness Past Patient History - Past Medical History & Family History Past Medical History?: Yes - Past Social History Smoking Status: Never Smoked - CARDIAC Hx Hypercholesterolemia: Yes Hx Hypertension: Yes - NEUROLOGICAL Hx Seizures: Yes - MUSCULOSKELETAL/RHEUMATOLOGICAL Hx Falls: Yes (fell twice at home) - PSYCHIATRIC Hx Substance Use: No Meds Allergies/Adverse Reactions: Allergies Allergy/AdvReac Type Severity Reaction Status Date / Time No Known Allergies Allergy Verified 11/02/17 10:22 - Medications Medications: Current Medications Amlodipine Besylate (Norvasc) 5 mg PO DAILY [facility] Last Admin: 11/05/17 09:38 Dose: 5 mg Aspirin (Ecotrin) 81 mg PO DAILY [facility] Heparin Sodium (Porcine) (Heparin) 5,000 units SC Q8 [facility] Last Admin: 11/05/17 21:12 Dose: 5,000 units Levetiracetam (Keppra) 750 mg PO BID [facility] Last Admin: 11/05/17 18:48 Dose: 750 mg Oxybutynin Chloride (Ditropan Xl) 5 mg PO DAILY [facility] Last Admin: 11/05/17 09:38 Dose: 5 mg Rosuvastatin Calcium (Crestor) 5 mg PO HS [facility] Last Admin: 11/05/17 21:12 Dose: 5 mg Tamsulosin HCl (Flomax) 0.4 mg PO DAILY [facility] Physical Exam - Constitutional Appears: Non-toxic, No Acute Distress, Confused - Head Exam Head Exam: NORMAL INSPECTION - Eye Exam Eye Exam: EOMI, Normal appearance Pupil Exam: NORMAL ACCOMODATION - ENT Exam ENT Exam: Mucous Membranes Moist - Neck Exam Neck exam: Positive for: Normal Inspection - Respiratory Exam Respiratory Exam: Clear to Auscultation Bilateral - Cardiovascular Exam Cardiovascular Exam: +S1, +S2 Additional comments: Pacemaker implanted - GI/Abdominal Exam GI & Abdominal Exam: Soft. absent: Distended, Tenderness - Extremities Exam Extremities exam: Positive for: normal inspection - Neurological Exam Neurological exam: Alert, CN II-XII Intact - Expanded Neurological Exam Expanded Patient oriented to: person, place Neuro motor strength exam: Right Upper Extremity: 3, Left Lower Extremity: 3 - Skin Skin Exam: Normal Color, Warm Results - Vital Signs Recent Vital Signs: Last Vital Signs Temp 98 F 11/05/17 15:00 Pulse 87 11/05/17 15:00 Resp 20 11/05/17 15:00 BP 161/80 H 11/05/17 15:00 Pulse Ox 98 11/05/17 15:00 - Labs Result Diagrams: 11/05/17 07:41 11/05/17 07:41 Labs: Laboratory Results - last 24 hr 11/02/17 11/02/17 11/05/17 10:02 11:28 07:41 WBC 7.9 RBC 3.84 L Hgb 12.0 Hct 33.7 L MCV 87.6 MCH 31.1 H MCHC 35.5 RDW 12.2 Plt Count 240 MPV 7.6 Sodium Potassium Chloride Carbon Dioxide Anion Gap BUN Creatinine Est GFR ( Amer) Est GFR (Non-Af Amer) POC Glucose (mg/dL) 151 H Random Glucose Calcium Urine Chloride 32 11/05/17 07:41 WBC RBC Hgb Hct MCV MCH MCHC RDW Plt Count MPV Sodium 130 L Potassium 3.6 Chloride 96 L Carbon Dioxide 27 Anion Gap 10 BUN 9 Creatinine 0.8 Est GFR ( Amer) > 60 Est GFR (Non-Af Amer) > 60 POC Glucose (mg/dL) Random Glucose 116 H Calcium 8.3 L Urine Chloride Assessment & Plan (1) Generalized weakness Status: Acute (2) Recurrent falls Status: Acute - Assessment and Plan (Free Text) Plan: --continue Keppra 750 mg PO BID --repeat CT head noncontrast --obtain Head/Neck CTA
[2017-11-05] MEDS ORDERED: Iodixanol 320 MG/ML 100 ML BOTTLE IV ONE (23:47)
[2017-11-06 07:51] LABS: BLOOD UREA NITROGEN 9 mg/dL (9-20); CALCIUM 8.7 mg/dl (8.6-10.4); GFR AFRICAN-AMERICAN > 60; GFR NON-AFRICAN AMERICAN > 60
--- NOTE | 2017-11-06 10:45 | CT ---
PROCEDURE: CT HEAD WITHOUT CONTRAST. HISTORY: syncopal episodes, frequent falls COMPARISON: CT head dated 11/02/2017. TECHNIQUE: Axial computed tomography images were obtained through the head/brain without intravenous contrast. Radiation dose: Total exam DLP = 749.3 mGy-cm. This CT exam was performed using one or more of the following dose reduction techniques: Automated exposure control, adjustment of the mA and/or kV according to patient size, and/or use of iterative reconstruction technique. FINDINGS: HEMORRHAGE: No intracranial hemorrhage. BRAIN: No mass effect or edema. Atrophy. Chronic microvascular ischemic changes. Bilateral basal ganglia lacunar infarctions. VENTRICLES: Prominent. No hydrocephalus. CALVARIUM: Unremarkable. PARANASAL SINUSES: Unremarkable as visualized. No significant inflammatory changes. MASTOID AIR CELLS: Unremarkable as visualized. No inflammatory changes. OTHER FINDINGS: Heavy calcific atherosclerosis of the intracranial vessels. IMPRESSION: No acute intracranial pathology. Age-related changes.
--- NOTE | 2017-11-06 12:13 | CP.PCM.PN ---
Subjective - Date & Time of Evaluation Date of Evaluation: 11/06/17 Time of Evaluation: 12:12 - Subjective Subjective: CHIEF COMPLAINTS TODAY : Patient has difficulty ambulating because of the severe weakness of the lower extremity. Patient also has some tremors on walking. Complaining of shoulder pain right side. The x-ray of the right shoulder is negative for any fracture or dislocation. ROS. HEENT : N. Resp : No cough, wheezing ,pleuritic CP ,or hemoptysis Cardio : No anginal CP, PND, orthopnea, palpitation GI : No abd.pain, n/v ,diarrhea or GI bleeding . TRASH MAN : No headache, vertigo, focal deficit. Musculoskel : No joint swelling , Derm : No rash Psych : Normal affect. Ext : No swelling ,calf pain PE. Pt. is alert awake in no distress. V.S As noted in the chart Head ,ear nose,throat and eyes : Normal. Neck : Supple with normal carotids. Lungs: Clear air entry. Heart : S1 & S2 normal with S4. No murmur. Abd : Soft non tender with normal bowel sounds. Neuro : weakness of the lower extremities with some tremors. Reflexes are down plantars are equivocal. Ext : No edema with intact pulses.Non tender calves Derm : No rashes or decubitus ulcer. LABS/RADIOLOGY: REPEAT ct OF THE HEAD SHOWS NO ACUTE CHANGES CHRONIC CHANGES RELATED TO AGE ASSESSMENT/PLAN : continue physical therapy and rehab as per family's choice. Objective - Vital Signs/Intake and Output Vital Signs (last 24 hours): Temp Pulse Resp BP Pulse Ox 97.6 F 68 20 162/68 H 97 11/06/17 07:00 11/06/17 07:00 11/06/17 07:00 11/06/17 07:00 11/06/17 07:00 Intake and Output: 11/06/17 11/06/17 11:59 23:59 Output Total 475 Balance -475 - Medications Medications: Current Medications Amlodipine Besylate (Norvasc) 5 mg PO DAILY [facility] Last Admin: 11/06/17 09:35 Dose: 5 mg Aspirin (Ecotrin) 81 mg PO DAILY [facility] Last Admin: 11/06/17 09:35 Dose: 81 mg Heparin Sodium (Porcine) (Heparin) 5,000 units SC Q8 [facility] Last Admin: 11/06/17 06:36 Dose: 5,000 units Levetiracetam (Keppra) 750 mg PO BID [facility] Last Admin: 11/06/17 09:35 Dose: 750 mg Oxybutynin Chloride (Ditropan Xl) 5 mg PO DAILY [facility] Last Admin: 11/06/17 09:36 Dose: 5 mg Rosuvastatin Calcium (Crestor) 5 mg PO HS [facility] Last Admin: 11/05/17 21:12 Dose: 5 mg Tamsulosin HCl (Flomax) 0.4 mg PO DAILY [facility] Last Admin: 11/06/17 09:35 Dose: 0.4 mg - Labs Labs: 11/05/17 07:41 11/06/17 07:15 PT 12.4 SECONDS (9.7-12.2) H 11/02/17 10:38 INR 1.1 11/02/17 10:38 APTT 27 SECONDS (21-34) 11/02/17 10:38
--- NOTE | 2017-11-06 14:23 | PCM.EEG ---
Electroencephalogram Report - Electroencephalogram Report Procedure Date: 11/04/17 Interpretation: Indication: Syncope. Medications were reviewed. Technical: This is a digitally recorded electroencephalogram. The international 10-20 electrode placement system is used for scalp electrode placement. Eighteen channels of scalp EEG are recorded Another channel was used for for ECG. The data are stored digitally and reviewed in reformatted montages for optimal display. Background: 9 to 10 hertz alpha activity was seen. Maximal over the posterior head region. These activities are symmetric on both sides. They attenuated with eye opening. Small amount of beta activities are seen. Description: No focal slowing was seen. No seizure like activity was observed during this recording. Patient entered into periods of drowsiness and light sleep. Impression: Normal EEG awake and drowsy. No focal slowing no seizure like activity was observed.
--- NOTE | 2017-11-06 23:29 | CARD ---
APPROVED REPORT EXAM: Two-dimensional and M-mode echocardiogram with Doppler and color Doppler. Other Information Quality : GoodRhythm : INDICATION Syncope RISK FACTORS Hypertension 2D DIMENSIONS IVSd1.1 (0.7-1.1cm)LVDd3.7 (3.9-5.9cm) PWd1.3 (0.7-1.1cm)LVDs2.2 (2.5-4.0cm) FS (%) 40.9 %LVEF (%)72.6 (>50%) M-Mode DIMENSIONS Left Atrium (MM)3.63 (2.5-4.0cm)IVSd1.33 (0.7-1.1cm) Aortic Root3.52 (2.2-3.7cm)LVDd5.03 (4.0-5.6cm) Aortic Cusp Exc.2.01 (1.5-2.0cm)PWd1.26 (0.7-1.1cm) FS (%) 37 %LVDs3.15 (2.0-3.8cm) LVEF (%)67 (>50%) Aortic Valve AI P 1/2 [id number] Mitral Valve MV E Piiqmkrb29.5cm/sMV A Dijafxtc787.7cm/sE/A ratio0.4 TDI E/Lateral E'0.0E/Medial E'0.0 Tricuspid Valve TR Peak Lynhndbj088ky/sTR Peak Gr.[id number] LEFT VENTRICLE The left ventricle is normal size. There is mild concentric left ventricular hypertrophy. Left ventricle systolic function is normal. The Ejection Fraction is >70%. There is normal LV segmental wall motion. Tissue Doppler imaging reveals abnormal left ventricular diastolic dysfunction. RIGHT VENTRICLE The right ventricle is normal size. There is normal right ventricular wall thickness. The right ventricular systolic function is normal. ATRIA The left atrium size is normal. The right atrium size is normal. Lipomatous hypertrophy of the interatrial septum is noted. AORTIC VALVE The aortic valve is calcified but opens well. There is mild aortic regurgitation. There is no aortic valvular stenosis. There is no aortic valvular vegetation. MITRAL VALVE The mitral valve is calcified but opens well. Mitral annular calcification is mild. There is no evidence of mitral valve prolapse. There is no mitral valve stenosis. Mitral regurgitation is mild. TRICUSPID VALVE The tricuspid valve is normal in structure. There is mild tricuspid regurgitation. Right ventricular systolic pressure is estimated at 30-40 mmHg. There is mild pulmonary hypertension. PULMONIC VALVE The pulmonic valve is not well visualized. There is no pulmonic valvular regurgitation. GREAT VESSELS The aortic root is normal in size. PERICARDIAL EFFUSION There is no significant pericardial effusion. <Conclusion> Left ventricle systolic function is normal. The Ejection Fraction is >70%. Hypertensive heart disease. There is mild concentric left ventricular hypertrophy. Diastolic dysfunction. There is mild aortic regurgitation. Mitral regurgitation is mild. There is mild tricuspid regurgitation. There is mild pulmonary hypertension. There is no pulmonic valvular regurgitation.
--- NOTE | 2017-11-07 10:37 | CT ---
PROCEDURE: CT Angiography of the Brain and Neck. HISTORY: syncopal episode, frequent falls COMPARISON: None available. TECHNIQUE: CT angiography of the intracranial and neck arteries was performed. Coronal and sagittal maximum intensity projection reformatted images were generated. Contrast Dose: Visipaque 320, 100 cc Radiation dose:Total exam DLP = 457.92 mGy-cm. This CT exam was performed using one or more of the following dose reduction techniques: Automated exposure control, adjustment of the mA and/or kV according to patient size, and/or use of iterative reconstruction technique. FINDINGS: INTERNAL CEREBRAL ARTERIES: Mild atherosclerotic changes seen the bilateral cavernous ICA segments. The skull base, petrous, cavernous and supraclinoid segments are bilaterally widely patent. ANTERIOR CEREBRAL ARTERIES: Unremarkable. A1 and A2 segments are widely patent. Smaller distal branches unremarkable, as visualized. MIDDLE CEREBRAL ARTERIES: Unremarkable. M1 and M2 segments are widely patent. Perisylvian branches grossly symmetric. POSTERIOR CIRCULATION: Basilar Artery: Widely patent though atherosclerotic. Distal Vertebral Arteries: Widely patent though minimally atherosclerotic particularly approaching the junction with the basilar artery. Posterior Cerebral Arteries: Unremarkable. Posterior Inferior Cerebellar Arteries: Unremarkable. NECK CTA: Common Carotid arteries: The bilateral common carotid appear widely patent from their origins to their bifurcations with no significant stenosis appreciated. Mild atherosclerotic plaques at bilateral carotid bulbs. No evidence to suggest common carotid artery dissection. Internal Carotid arteries: No significant stenosis is appreciated throughout the cervical internal carotid artery segments bilaterally and there is no evidence of dissection either. External Carotid arteries: Appear unremarkable bilaterally. Vertebral arteries: The bilateral vertebral arteries appear normal in caliber from their origins to their junction with the basilar artery. No significant stenosis or definite pattern of dissection. ANEURYSM/ VASCULAR MALFORMATIONS: None. OTHER FINDINGS: Limited gas identified incidentally in the nondependent main pulmonary artery segment. In addition, there are lucencies identified at the left and right thyroid lobe which can be better characterized by thyroid ultrasonography as clinically warranted. IMPRESSION: Atherosclerotic changes are mild at the bilateral carotid bulbs as well as cavernous internal carotid artery segments, distal bilateral vertebral arteries and the basilar artery. These segments remain widely patent nevertheless without significant stenosis resulting. The remainder the examination appears unremarkable otherwise ; no occlusion or significant stenosis identified. Multiple bilateral thyroid lucencies which would be better characterized by ultrasound which can be performed electively as clinically warranted. Concordant preliminary report from [facility], 11/06/2017.
--- NOTE | 2017-11-07 12:09 | CP.PCM.DIS ---
Provider - Provider Date of Admission: 11/02/17 13:37 Attending physician: Shawn Shook MD Time Spent in preparation of Discharge (in minutes): 35 Hospital Course - Lab Results Lab Results: Micro Results 11/02/17 17:09 Blood-Venous Blood Culture - Preliminary NO GROWTH AFTER 4 DAYS 11/02/17 17:09 Blood-Venous Blood Culture - Preliminary NO GROWTH AFTER 4 DAYS 11/02/17 20:11 Urine Urine Culture - Final 10-50,000 CFU/ML. MULTIPLE SPECIES. PROBABLE CONTAMINATION. 11/02/17 10:49 Urine Urine Culture - Final No Growth (<1,000 CFU/ML) Most Recent Lab Values WBC 7.9 K/uL (4.8-10.8) 11/05/17 07:41 RBC 3.84 Mil/uL (4.40-5.90) L 11/05/17 07:41 Hgb 12.0 g/dL (12.0-18.0) 11/05/17 07:41 Hct 33.7 % (35.0-51.0) L 11/05/17 07:41 MCV 87.6 fL (80.0-94.0) 11/05/17 07:41 MCH 31.1 pg (27.0-31.0) H 11/05/17 07:41 MCHC 35.5 g/dL (33.0-37.0) 11/05/17 07:41 RDW 12.2 % (11.5-14.5) 11/05/17 07:41 Plt Count 240 K/uL (130-400) 11/05/17 07:41 MPV 7.6 fL (7.2-11.7) 11/05/17 07:41 Neut % (Auto) 69.7 % (50.0-75.0) 11/02/17 10:38 Lymph % (Auto) 11.5 % (20.0-40.0) L 11/02/17 10:38 Luce % (Auto) 15.8 % (0.0-10.0) H 11/02/17 10:38 Eos % (Auto) 1.5 % (0.0-4.0) 11/02/17 10:38 Baso % (Auto) 1.5 % (0.0-2.0) 11/02/17 10:38 Neut # (Auto) 5.0 K/uL (1.8-7.0) 11/02/17 10:38 Lymph # (Auto) 0.8 K/uL (1.0-4.3) L 11/02/17 10:38 Luce # (Auto) 1.1 K/uL (0.0-0.8) H 11/02/17 10:38 Eos # (Auto) 0.1 K/uL (0.0-0.7) 11/02/17 10:38 Baso # (Auto) 0.1 K/uL (0.0-0.2) 11/02/17 10:38 PT 12.4 SECONDS (9.7-12.2) H 11/02/17 10:38 INR 1.1 11/02/17 10:38 APTT 27 SECONDS (21-34) 11/02/17 10:38 Sodium 132 mmol/L (132-148) 11/06/17 07:15 Potassium 4.1 mmol/L (3.6-5.2) 11/06/17 07:15 Chloride 97 mmol/L (98-107) L 11/06/17 07:15 Carbon Dioxide 29 mmol/L (22-30) 11/06/17 07:15 Anion Gap 10 (10-20) 11/06/17 07:15 BUN 9 mg/dL (9-20) 11/06/17 07:15 Creatinine 0.8 mg/dL (0.8-1.5) 11/06/17 07:15 Est GFR ( Amer) > 60 11/06/17 07:15 Est GFR (Non-Af Amer) > 60 11/06/17 07:15 POC Glucose (mg/dL) 151 mg/dL (65-110) H 11/02/17 10:02 Random Glucose 95 mg/dL (75-110) 11/06/17 07:15 Serum Osmolality 262 mosm/kg (272-300) L 11/02/17 11:43 Calcium 8.7 mg/dl (8.6-10.4) 11/06/17 07:15 Total Bilirubin 0.7 mg/dL (0.2-1.3) 11/03/17 06:53 AST 27 U/L (17-59) 11/03/17 06:53 ALT 21 U/L (21-72) 11/03/17 06:53 Alkaline Phosphatase 37 U/L (38-126) L D 11/03/17 06:53 Total Creatine Kinase 145 U/L (55-170) 11/02/17 10:38 CK-MB (Mass) 1.30 ng/mL (0.0-3.38) 11/02/17 10:38 Troponin I 0.0170 ng/mL (0.00-0.120) 11/02/17 10:38 Total Protein 6.1 g/dL (6.3-8.3) L 11/03/17 06:53 Albumin 3.2 g/dL (3.5-5.0) L 11/03/17 06:53 Globulin 2.9 gm/dL (2.2-3.9) 11/03/17 06:53 Albumin/Globulin Ratio 1.1 (1.0-2.1) 11/03/17 06:53 Urine Color Yellow (YELLOW) 11/02/17 10:49 Urine Clarity Clear (Clear) 11/02/17 10:49 Urine pH 5.0 (5.0-8.0) 11/02/17 10:49 Ur Specific [place] 1.009 (1.003-1.030) 11/02/17 10:49 Urine Protein 1+ mg/dL (NEGATIVE) H 11/02/17 10:49 Urine Glucose (UA) Normal mg/dL (Normal) 11/02/17 10:49 Urine Ketones Negative mg/dL (NEGATIVE) 11/02/17 10:49 Urine Blood Negative (NEGATIVE) 11/02/17 10:49 Urine Nitrate Negative (NEGATIVE) 11/02/17 10:49 Urine Bilirubin Negative (NEGATIVE) 11/02/17 10:49 Urine Urobilinogen Normal mg/dL (0.2-1.0) 11/02/17 10:49 Ur Leukocyte Esterase Trace Chandana/uL (Negative) 11/02/17 10:49 Urine WBC (Auto) 3 /hpf (0-5) 11/02/17 10:49 Urine RBC (Auto) < 1 /hpf (0-3) 11/02/17 10:49 Ur Squamous Epith Cells < 1 /hpf (0-5) 11/02/17 10:49 Urine Bacteria Rare (<OCC) 11/02/17 10:49 Hyaline Casts 3-5 /lpf (0-2) H 11/02/17 10:49 Urine Osmolality 280 mosm/kg (300-1000) L 11/02/17 11:28 Ur Random Sodium 30 mmol/L 11/02/17 20:11 Ur Random Potassium 23.4 mmol/L 11/02/17 11:28 Urine Chloride 32 mmol/L (32-290) 11/02/17 11:28 - Hospital Course Hospital Course: Patient is a 81 years old [place] male with a history of hypertension on diuretics had a couple of syncopal episode at home. Patient was brought to the emergency room workup showed negative neurocardiac system. Patient was complaining of back pain and x-ray showed some bad shape fractures in the vertebra and CAT scan of the spine is pending. Laboratory showed the patient had a low sodium of 123. Patient was given some IV bolus sodium still remains about 124. Urine osmolality is very low Patient has history of hypertension and a history of previous history of syncopal episodes patient was admitted on the floor. All home medications were continued including captopril. 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 EEG was normal. CAT scan of the head shows some microvascular changes. The CT angio of the head and neck showed some atherosclerosis of the internal carotid arteries and vertebral arteries with no definite occlusions. Patient continued to have weakness of the lower extremity unable to walk. Patient was also complaining of right shoulder pain unable to move x-ray did not show any fractures. As per the family's wishes patient was transferred to the rehab center in [facility] where he will continue his further physical therapy muscle strengthening exercise and also PT of the shoulder. Patient will continue all his current medications including Keppra. addendum November 08, 2017. Patient was Doppler for another 24 hours by neurology service as patient was given Vimpat. Patient has tolerated Vimpat and will be transferred to rehab today. There is no any new findings or events since the last discharge. Discharge Exam - Head Exam Head Exam: NORMAL INSPECTION Discharge Plan - Follow Up Plan Condition: FAIR Disposition: HOME/ ROUTINE Instructions: Preventing Falls in the Older Adult, Generalized Weakness (DC), Hyponatremia (DC) Referrals: Shawn Shook MD [Staff Provider] -
--- NOTE | 2017-11-07 14:26 | CP.PCM.PN ---
Subjective - Date & Time of Evaluation Date of Evaluation: 11/07/17 Time of Evaluation: 11:30 - Subjective Subjective: PGY-1 Neurology f/u for Dr. Kothari's service Mr. Peace was seen and examined at bedside this morning. No acute overnight events reported. Clinically improving. Patient denies any dizziness or loss of consciousness. Per son, patient has a history of recurrent seizures (on keppra) and automatisms, suggestive of temporal lobe epilepsy. Objective - Vital Signs/Intake and Output Vital Signs (last 24 hours): Temp Pulse Resp BP Pulse Ox 98.6 F 60 20 164/71 H 98 11/07/17 08:00 11/07/17 08:05 11/07/17 08:00 11/07/17 08:00 11/07/17 08:00 - Medications Medications: Current Medications Amlodipine Besylate (Norvasc) 5 mg PO DAILY [facility] Last Admin: 11/07/17 09:27 Dose: 5 mg Aspirin (Ecotrin) 81 mg PO DAILY [facility] Last Admin: 11/07/17 09:27 Dose: 81 mg Levetiracetam (Keppra) 750 mg PO BID [facility] Last Admin: 11/07/17 09:27 Dose: 750 mg Oxybutynin Chloride (Ditropan Xl) 5 mg PO DAILY [facility] Last Admin: 11/07/17 09:28 Dose: 5 mg Rosuvastatin Calcium (Crestor) 5 mg PO HS [facility] Last Admin: 11/06/17 21:18 Dose: 5 mg Tamsulosin HCl (Flomax) 0.4 mg PO DAILY [facility] Last Admin: 11/07/17 09:27 Dose: 0.4 mg - Labs Labs: 11/05/17 07:41 11/06/17 07:15 PT 12.4 SECONDS (9.7-12.2) H 11/02/17 10:38 INR 1.1 11/02/17 10:38 APTT 27 SECONDS (21-34) 11/02/17 10:38 - Constitutional Appears: Well, No Acute Distress, Confused - Head Exam Head Exam: NORMAL INSPECTION - Eye Exam Eye Exam: EOMI, Normal appearance Pupil Exam: NORMAL ACCOMODATION - ENT Exam ENT Exam: Normal Exam - Neck Exam Neck Exam: Normal Inspection - Respiratory Exam Respiratory Exam: Clear to Ausculation Bilateral - Cardiovascular Exam Cardiovascular Exam: +S1, +S2 Additional comments: Pacemaker implanted - Back Exam Back Exam: NORMAL INSPECTION - Neurological Exam Neurological Exam: Alert, Awake, CN II-XII Intact Additional comments: weakness of the lower extremities with mild tremors - Psychiatric Exam Psychiatric exam: Normal Affect, Normal Mood - Skin Skin Exam: Dry, Intact, Normal Color, Warm Assessment and Plan - Assessment and Plan (Free Text) Assessment: 81 yo [place]ian M with PMHx of HTN on diuretics and past syncopal episodes presents with new onset syncopal episode at home. 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 Plan: 1. Generalized weakness, recurrent falls --EEG: Normal awake and drowsy. No focal slowing no seizure like activity was observed. -- Head CT: negative for acute intracranial pathology --Head/Neck CTA: mild atherosclerotic changes, no thrombus or occlusion --Continue Keppra 750 mg PO BID --Begin Vimpat 100 mg PO BID --PT rehab Management as per Dr. Kothari
[2017-11-07] MEDS: Lacosamide 100 MG Tab PO SCH (18:52)
--- NOTE | 2017-11-08 07:34 | CP.PCM.PN ---
Subjective - Date & Time of Evaluation Date of Evaluation: 11/08/17 Time of Evaluation: 07:34 - Subjective Subjective: Mr. Peace was seen and examined at the bedside. He is awake, but confused to time, place, and person. He is claims of being in his bed at home, and uses his gown to wipe himself. He denies any burred vision, dizziness. He is able to follow simple commands. There was no untoward events overnight. Objective - Vital Signs/Intake and Output Vital Signs (last 24 hours): Temp Pulse Resp BP Pulse Ox 98 F 65 20 159/74 H 96 11/07/17 23:30 11/07/17 23:30 11/07/17 23:30 11/07/17 23:30 11/07/17 23:30 - Medications Medications: Current Medications Amlodipine Besylate (Norvasc) 5 mg PO DAILY [facility] Last Admin: 11/07/17 09:27 Dose: 5 mg Aspirin (Ecotrin) 81 mg PO DAILY [facility] Last Admin: 11/07/17 09:27 Dose: 81 mg Lacosamide (Vimpat) 100 mg PO BID [facility] Last Admin: 11/07/17 18:52 Dose: 100 mg Levetiracetam (Keppra) 750 mg PO BID [facility] Last Admin: 11/07/17 18:51 Dose: 750 mg Oxybutynin Chloride (Ditropan Xl) 5 mg PO DAILY [facility] Last Admin: 11/07/17 09:28 Dose: 5 mg Rosuvastatin Calcium (Crestor) 5 mg PO [facility] Last Admin: 11/07/17 22:00 Dose: Not Given Tamsulosin HCl (Flomax) 0.4 mg PO DAILY [facility] Last Admin: 11/07/17 09:27 Dose: 0.4 mg - Labs Labs: 11/05/17 07:41 11/06/17 07:15 PT 12.4 SECONDS (9.7-12.2) H 11/02/17 10:38 INR 1.1 11/02/17 10:38 APTT 27 SECONDS (21-34) 11/02/17 10:38 - Constitutional Appears: No Acute Distress - Head Exam Head Exam: NORMAL INSPECTION - Eye Exam Pupil Exam: PERRL - Neurological Exam Neurological Exam: Awake Neuro motor strength exam: Left Upper Extremity: 4, Right Upper Extremity: 4, Left Lower Extremity: 4, Right Lower Extremity: 4 Additional comments: awake, alert, but with episode of confusion, follows simple commands. Assessment and Plan (1) Confusion Assessment & Plan: Case discussed with Dr. Kothari, continue all current medical regimen including all AED. Recommend hydration, blood pressure control, and follow up with an outpatient neurologist to further monitor mental status. Status: Acute
[2017-11-08 09:20] VITALS: BP 153/72; PULSE 77; RESP 18; TEMP 98.3; O2SAT 98
[2017-11-08] MEDS: Lacosamide 100 MG Tab PO SCH (09:54)
--- NOTE | 2017-11-08 18:23 | CP.PCM.PN ---
Subjective - Date & Time of Evaluation Date of Evaluation: 11/08/17 Time of Evaluation: 09:45 Objective - Vital Signs/Intake and Output Vital Signs (last 24 hours): Temp Pulse Resp BP Pulse Ox 98.3 F 77 18 153/72 H 98 11/08/17 07:40 11/08/17 07:40 11/08/17 07:40 11/08/17 07:40 11/08/17 07:40 Intake and Output: 11/08/17 11/08/17 06:59 18:59 Output Total 500 Balance -500 - Labs Labs: 11/05/17 07:41 11/06/17 07:15 PT 12.4 SECONDS (9.7-12.2) H 11/02/17 10:38 INR 1.1 11/02/17 10:38 APTT 27 SECONDS (21-34) 11/02/17 10:38
== END 2017-11-08 14:59 | DRG 312 ==
LOC: C.ER 09:49 → C.9E 13:37 → C.6T 14:29
PROVIDERS: ADMIT Internal Medicine Cardiovascular Disease; ATTEND Internal Medicine Cardiovascular Disease
DX: R55 Syncope and collapse (principal); E87.1 Hypo-osmolality and hyponatremia; J98.11 Atelectasis; M48.57XA Collapsed vertebra, not elsewhere classified, lumbosacral region, initial encounter for fracture; N40.0 Benign prostatic hyperplasia without lower urinary tract symptoms; R29.6 Repeated falls; M47.9 Spondylosis, unspecified; K76.89 Other specified diseases of liver; N28.1 Cyst of kidney, acquired; I65.29 Occlusion and stenosis of unspecified carotid artery; E78.00 Pure hypercholesterolemia, unspecified; I10 Essential (primary) hypertension; G40.909 Epilepsy, unspecified, not intractable, without status epilepticus; Z91.81 History of falling

== ENCOUNTER 2018-03-31 19:26 | Inpatient (IN) | payer MEDICARE, MEDICAID ==
[2018-03-31 20:43] LABS: BASO # 0.1 K/uL (0.0-0.2); EOS # 0.5 K/uL (0.0-0.7); EOS % 8.5 % (0.0-4.0); LYMPH # 1.4 K/uL (1.0-4.3); LYMPH % 21.5 % (20.0-40.0); MEAN CORPUSCULAR HEMOGLOBIN 22.8 pg (27.0-31.0); MEAN CORPUSCULAR HGB CONC 32.5 g/dL (33.0-37.0); MEAN PLATELET VOLUME 7.9 fL (7.2-11.7); MONO # 0.8 K/uL (0.0-0.8); MONO % 12.2 % (0.0-10.0); NEUT # 3.6 K/uL (1.8-7.0); NEUT % 56.8 % (50.0-75.0); NRBC % 0.1 % (0.0-2.0); RBC 3.68 Mil/uL (4.40-5.90); RED CELL DISTRIBUTION WIDTH 18.3 % (11.5-14.5); WHITE BLOOD COUNT 6.3 K/uL (4.8-10.8)
--- NOTE | 2018-03-31 20:44 | C.PDOC ---
History Of Present Illness 82 year old male with PMHx of HTN and seizure disorder presents to the ED accompanied by his son for evaluation of a syncopal episode and a fall. As per Patient's , patient fell back and hit his head against his walker and passed out for approximately 1 minute. Patient's reports this was not seizure related as his last seizure was a year ago and usually patient is post ictal but this time patient was alert. Patient's son states patient has been losing weight, not eating due to having difficulty swallowing, losing control of his bladder at night. Patient's reports patient wakes up with strong smelling urine. Patient's son reports 10 years ago patient had a fall that resulted in bran bleed which he was supposed to have surgery for but never did. Patient denies fever, chills, nausea, vomit, diarrhea, rash, visual changes, weakness, numbness. - HPI Time Seen by Provider: 03/31/18 19:48 Chief Complaint (Nursing): Trauma History Per: Patient, Family History/Exam Limitations: no limitations Onset/Duration Of Symptoms: Hrs Injury Occurred (Timing): Just Before Arrival Location Of Injury: Posterior: Head Recent travel outside of the [facility]: No Additional History Per: Patient - Fall Fall:Prior To Injury: Passed Out, Slipped Past Medical History Reviewed: Historical Data, Nursing Documentation, Vital Signs Vital Signs: Last Vital Signs Temp 98.1 F 03/31/18 19:40 Pulse 60 03/31/18 19:40 Resp 16 03/31/18 19:40 BP Pulse Ox 100 03/31/18 19:40 - Medical History PMH: Benign Prostatic Hyperplasia, HTN, Hypercholesterolemia, Seizures Surgical History: No Surg Hx Family History: States: Unknown Family Hx - Social History Hx Alcohol Use: No Hx Substance Use: No - Immunization History Hx Tetanus Toxoid Vaccination: No Hx Influenza Vaccination: No Hx Pneumococcal Vaccination: No Review Of Systems Constitutional: Negative for: Fever, Chills Eyes: Negative for: Vision Change Cardiovascular: Negative for: Chest Pain Respiratory: Negative for: Cough, Shortness of Breath Gastrointestinal: Negative for: Nausea, Vomiting, Abdominal Pain Skin: Negative for: Rash Neurological: Positive for: Headache. Negative for: Weakness, Numbness, Dizziness Physical Exam - Physical Exam Appears: Non-toxic, No Acute Distress Skin: Normal Color, Warm, Dry Head: Atraumatic, Normacephalic, Tenderness (occipital area) Eye(s): bilateral: Normal Inspection, PERRL, EOMI Oral Mucosa: Dry Neck: Normal ROM, Supple, Other (diffuse tender C-spine) Chest: Symmetrical, No Tenderness Cardiovascular: Rhythm Regular Respiratory: Normal Breath Sounds, No Rales, No Rhonchi, No Wheezing Gastrointestinal/Abdominal: Soft, No Tenderness, No Guarding, No Rebound Back: No Paraspinal Tenderness Extremity: Normal ROM, No Tenderness, No Swelling Neurological/Psych: Oriented x3, Normal Speech, Normal Cognition, Normal Motor, Normal Sensation Gait: With Assistance (walker) ED Course And Treatment - Laboratory Results Result Diagrams: 04/03/18 06:44 04/03/18 06:44 O2 Sat by Pulse Oximetry: 100 (ON RA) Pulse Ox Interpretation: Normal - Radiology CXR: Interpreted by Me, Viewed By Me CXR Interpretation: Yes: No Acute Disease. No: Infiltrates, Fracture - CT Scan/US CT C-spine Other Rad Studies (CT/US): Read By Radiologist, Radiology Report Reviewed CT/US Interpretation: EXAM: CT Cervical Spine Without IV contrast. CLINICAL HISTORY: Neck injuty. s/p fall. TECHNIQUE: Volumetric acquisition of the cervical spine without contrast. Multiplanar reformatted images. COMPARISON: None provided. FINDINGS: ALIGNMENT. Bony alignment is anatomic. DEGENERATIVE CHANGES. Findings: There is straightening of normal lordotic curvature of the cervical spine. The vertebral body statures are preserved. There is disc space narrowing at the C6-C7 discs. Bilateral foraminal narrowing C6-C7. SOFT TISSUES. The prevertebral soft tissues are within normal limits. BONES. CT CERVICAL SPINE. MISCELLANEOUS. Indications: Neck injury. IMPRESSION: There is straightening of normal lordotic curvature of the cervical spine. The vertebral body statures are preserved. There is disc space narrowing at the C6- C7 discs. Bilateral foraminal narrowing C6-C7. . Electronically signed on Mar 31, 2018 9:58:47 PM EST by: Navarro Piper M.D., Certified by [facility] CT head Other Rad Studies (CT/US): Read By Radiologist, Radiology Report Reviewed CT/US Interpretation: EXAM: CT Head without Intravenous Contrast. CLINICAL HISTORY: Head injury. s/p fall. TECHNIQUE: Axial computed tomography images of the head/brain without intravenous contrast. 0.00 mGy-cm. COMPARISON: None provided. FINDINGS: BRAIN. No acute intracranial hemorrhage. VENTRICLES: No hydrocephalus. ORBITS: The orbits are unremarkable. SINUSES AND MASTOIDS: The paranasal sinuses and mastoid air cells are clear. BONES: No fracture. SOFT TISSUES: Unremarkable. MISCELLANEOUS: Age-related involutional changes. Dense calcification of the basilar artery. IMPRESSION: 1. Age-related involutional changes. 2. No acute intracranial hemorrhage. 3. Dense calcification of the basilar artery. . Electronically signed on Mar 31, 2018 10:22:31 PM EST by: Navarro Piper M.D., Certified by [facility] Medical Decision Making Medical Decision Making: Plan: * CT head * CT C SPine * EKG * Labs * CXR * UA 22:55 - Discussed patient with Dr. Gilberto Peace who will accept the patient under his service. Disposition Counseled Patient/Family Regarding: Studies Performed, Diagnosis - Disposition Disposition: HOSPITALIZED Disposition Time: 22:55 Condition: STABLE - Clinical Impression Clinical Impression: Syncope, Hyponatremia, Head injury, acute, with loss of consciousness, Hypokalemia, Anemia - Scribe Statement The provider has reviewed the documentation as recorded by the Scribe Karlo Arenas All medical record entries made by the Scribe were at my direction and personal ly dictated by me. I have reviewed the chart and agree that the record accurately reflects my personal performance of the history, physical exam, medical decision making, and the department course for this patient. I have also personally directed, reviewed, and agree with the discharge instructions and disposition.
[2018-03-31 20:45] LABS: HEMOGLOBIN 8.4 g/dL (12.0-18.0)
[2018-03-31 20:51] LABS: INR 1.1; PROTHROMBIN TIME 12.5 SECONDS (9.7-12.2)
[2018-03-31 21:06] LABS: ALB/GLOB RATIO 1.3 (1.0-2.1); ALBUMIN 3.9 g/dL (3.5-5.0); ALT/SGPT 14 U/L (21-72); AST/SGOT 24 U/L (17-59); BLOOD UREA NITROGEN 16 mg/dL (9-20); CALCIUM 8.7 mg/dl (8.6-10.4); GFR NON-AFRICAN AMERICAN > 60
[2018-03-31] MEDS ORDERED: Potassium Chloride 20 mEq ER Tab PO STA (21:43)
[2018-03-31] MEDS: Sodium Chloride 0.9% 1,000 ML IV SCH (21:45)
[2018-03-31] MEDS ORDERED: Sodium Chloride 0.9% 1,000 ML ONE (22:04)
[2018-03-31] MEDS ORDERED: Potassium Chloride 20 mEq 100 ML ONE (22:05)
[2018-03-31] MEDS ORDERED: Potassium Chloride 20 mEq ER Tab PO ONE (22:05)
[2018-03-31 22:52] LABS: URINE BILIRUBIN NEGATIVE (NEGATIVE); URINE BLOOD NEGATIVE (NEGATIVE); URINE CLARITY Clear (Clear); URINE COLOR Straw (YELLOW); URINE GLUCOSE (UA) NORMAL (Normal); URINE LEUKOCYTE ESTERASE NEG Leu/uL (Negative); URINE PROTEIN 1+ mg/dL (NEGATIVE); URINE UROBILINOGEN NORMAL mg/dL (0.2-1.0)
--- NOTE | 2018-03-31 23:58 | CP.PCM.HP ---
Past Patient History - Past Medical History & Family History Past Medical History?: Yes - Past Social History Smoking Status: Never Smoked - CARDIAC Hx Hypercholesterolemia: Yes Hx Hypertension: Yes - NEUROLOGICAL Hx Seizures: Yes - MUSCULOSKELETAL/RHEUMATOLOGICAL Hx Falls: Yes (fell twice at home) - PSYCHIATRIC Hx Substance Use: No Meds Allergies/Adverse Reactions: Allergies Allergy/AdvReac Type Severity Reaction Status Date / Time No Known Allergies Allergy Verified 03/31/18 19:49 Physical Exam - Constitutional Appears: Well - Head Exam Head Exam: ATRAUMATIC, NORMAL INSPECTION, NORMOCEPHALIC - Eye Exam Eye Exam: EOMI, Normal appearance, PERRL Pupil Exam: NORMAL ACCOMODATION, PERRL - ENT Exam ENT Exam: Mucous Membranes Moist, Normal Exam - Neck Exam Neck exam: Positive for: Normal Inspection - Respiratory Exam Respiratory Exam: Decreased Breath Sounds - Cardiovascular Exam Cardiovascular Exam: REGULAR RHYTHM, +S1, +S2 - GI/Abdominal Exam GI & Abdominal Exam: Diminished Bowel Sounds, Soft - Rectal Exam Rectal Exam: Deferred Results - Vital Signs Recent Vital Signs: Last Vital Signs Temp 98.1 F 03/31/18 19:40 Pulse 67 03/31/18 22:48 Resp 19 03/31/18 22:48 BP 195/90 H 03/31/18 22:48 Pulse Ox 100 03/31/18 23:14 - Labs Result Diagrams: 03/31/18 20:39 03/31/18 20:39 Labs: Laboratory Results - last 24 hr 03/31/18 03/31/18 03/31/18 20:02 20:39 20:39 WBC 6.3 RBC 3.68 L Hgb 8.4 L D Hct 25.8 L MCV 70.0 L D MCH 22.8 L MCHC 32.5 L RDW 18.3 H Plt Count 251 MPV 7.9 Neut % (Auto) 56.8 Lymph % (Auto) 21.5 [place] % (Auto) 12.2 H Eos % (Auto) 8.5 H Baso % (Auto) 1.0 Neut # (Auto) 3.6 Lymph # (Auto) 1.4 [place] # (Auto) 0.8 Eos # (Auto) 0.5 Baso # (Auto) 0.1 PT 12.5 H INR 1.1 APTT 27 Sodium Potassium Chloride Carbon Dioxide Anion Gap BUN Creatinine Est GFR ( Amer) Est GFR (Non-Af Amer) POC Glucose (mg/dL) 130 H Random Glucose Calcium Total Bilirubin AST ALT Alkaline Phosphatase Troponin I Total Protein Albumin Globulin Albumin/Globulin Ratio Urine Color Urine Clarity Urine pH Ur Specific [place] Urine Protein Urine Glucose (UA) Urine Ketones Urine Blood Urine Nitrate Urine Bilirubin Urine Urobilinogen Ur Leukocyte Esterase Urine WBC (Auto) Urine RBC (Auto) 03/31/18 03/31/18 20:39 22:47 WBC RBC Hgb Hct MCV MCH MCHC RDW Plt Count MPV Neut % (Auto) Lymph % (Auto) [place] % (Auto) Eos % (Auto) Baso % (Auto) Neut # (Auto) Lymph # (Auto) [place] # (Auto) Eos # (Auto) Baso # (Auto) PT INR APTT Sodium 125 L Potassium 2.9 L Chloride 85 L Carbon Dioxide 30 Anion Gap 14 BUN 16 Creatinine 1.0 Est GFR ( Amer) > 60 Est GFR (Non-Af Amer) > 60 POC Glucose (mg/dL) Random Glucose 108 Calcium 8.7 Total Bilirubin 0.3 AST 24 ALT 14 L D Alkaline Phosphatase 55 Troponin I 0.0220 Total Protein 6.9 Albumin 3.9 Globulin 3.0 Albumin/Globulin Ratio 1.3 Urine Color Straw Urine Clarity Clear Urine pH 7.0 Ur Specific [place] 1.003 Urine Protein 1+ H Urine Glucose (UA) Normal Urine Ketones Negative Urine Blood Negative Urine Nitrate Negative Urine Bilirubin Negative Urine Urobilinogen Normal Ur Leukocyte Esterase Neg Urine WBC (Auto) 3 Urine RBC (Auto) < 1
[2018-04-01] MEDS ORDERED: Potassium Chloride 20 mEq 100 ML ONE ×3 (00:22→04:53)
[2018-04-01 04:53] LABS: CK-MB 3.53 ng/mL (0.0-3.38); TROPONIN I 0.025 ng/mL (0.00-0.120)
--- NOTE | 2018-04-01 07:09 | CP.PCM.CON ---
History of Present Illness - History of Present Illness History of Present Illness: CONSULT DICTATED METABOLIC ENCEPHALOPATHY HYPONATREMIA CHECK EEG CONTINUE THE PRESENT AEDs CORRECT HTN FLUID RESTRICTION CHECK OSMOLALITY RENAL TO SEE Past Patient History - Past Medical History & Family History Past Medical History?: Yes - Past Social History Smoking Status: Never Smoked - CARDIAC Hx Hypercholesterolemia: Yes Hx Hypertension: Yes - NEUROLOGICAL Hx Seizures: Yes - MUSCULOSKELETAL/RHEUMATOLOGICAL Hx Falls: Yes (fell twice at home) - PSYCHIATRIC Hx Substance Use: No Meds Allergies/Adverse Reactions: Allergies Allergy/AdvReac Type Severity Reaction Status Date / Time No Known Allergies Allergy Verified 03/31/18 19:49 - Medications Medications: Current Medications Amlodipine Besylate (Norvasc) 5 mg PO DAILY [facility] Aspirin (Aspirin) 325 mg PO DAILY [facility] Aspirin (Ecotrin) 81 mg PO DAILY [facility] Enoxaparin Sodium (Lovenox) 40 mg SC DAILY [facility] Sodium Chloride (Sodium Chloride 0.9%) 1,000 mls @ 100 mls/hr IV .Q10H [facility] Last Admin: 03/31/18 21:45 Dose: 100 mls/hr Lacosamide (Vimpat) 100 mg PO BID [facility] Levetiracetam (Keppra) 750 mg PO BID [facility] Oxybutynin Chloride (Ditropan Xl) 5 mg PO DAILY [facility] Pantoprazole Sodium (Protonix Ec Tab) 40 mg PO DAILY [facility] Rosuvastatin Calcium (Crestor) 5 mg PO HS [facility] Tamsulosin HCl (Flomax) 0.4 mg PO DAILY [facility] Results - Vital Signs Recent Vital Signs: Last Vital Signs Temp 98.1 F 03/31/18 19:40 Pulse 60 04/01/18 06:01 Resp 20 04/01/18 06:01 BP 187/74 H 04/01/18 06:01 Pulse Ox 100 04/01/18 06:01 - Labs Result Diagrams: 03/31/18 20:39 03/31/18 20:39 Labs: Laboratory Results - last 24 hr 03/31/18 03/31/18 03/31/18 20:02 20:39 20:39 WBC 6.3 RBC 3.68 L Hgb 8.4 L D Hct 25.8 L MCV 70.0 L D MCH 22.8 L MCHC 32.5 L RDW 18.3 H Plt Count 251 MPV 7.9 Neut % (Auto) 56.8 Lymph % (Auto) 21.5 [place] % (Auto) 12.2 H Eos % (Auto) 8.5 H Baso % (Auto) 1.0 Neut # (Auto) 3.6 Lymph # (Auto) 1.4 [place] # (Auto) 0.8 Eos # (Auto) 0.5 Baso # (Auto) 0.1 PT 12.5 H INR 1.1 APTT 27 Sodium Potassium Chloride Carbon Dioxide Anion Gap BUN Creatinine Est GFR ( Amer) Est GFR (Non-Af Amer) POC Glucose (mg/dL) 130 H Random Glucose Calcium Total Bilirubin AST ALT Alkaline Phosphatase Total Creatine Kinase CK-MB (Mass) Troponin I Total Protein Albumin Globulin Albumin/Globulin Ratio Urine Color Urine Clarity Urine pH Ur Specific [place] Urine Protein Urine Glucose (UA) Urine Ketones Urine Blood Urine Nitrate Urine Bilirubin Urine Urobilinogen Ur Leukocyte Esterase Urine WBC (Auto) Urine RBC (Auto) 03/31/18 03/31/18 04/01/18 20:39 22:47 04:34 WBC RBC Hgb Hct MCV MCH MCHC RDW Plt Count MPV Neut % (Auto) Lymph % (Auto) [place] % (Auto) Eos % (Auto) Baso % (Auto) Neut # (Auto) Lymph # (Auto) [place] # (Auto) Eos # (Auto) Baso # (Auto) PT INR APTT Sodium 125 L Potassium 2.9 L Chloride 85 L Carbon Dioxide 30 Anion Gap 14 BUN 16 Creatinine 1.0 Est GFR ( Amer) > 60 Est GFR (Non-Af Amer) > 60 POC Glucose (mg/dL) Random Glucose 108 Calcium 8.7 Total Bilirubin 0.3 AST 24 ALT 14 L D Alkaline Phosphatase 55 Total Creatine Kinase 90 CK-MB (Mass) 3.53 H Troponin I 0.0220 0.0250 Total Protein 6.9 Albumin 3.9 Globulin 3.0 Albumin/Globulin Ratio 1.3 Urine Color Straw Urine Clarity Clear Urine pH 7.0 Ur Specific [place] 1.003 Urine Protein 1+ H Urine Glucose (UA) Normal Urine Ketones Negative Urine Blood Negative Urine Nitrate Negative Urine Bilirubin Negative Urine Urobilinogen Normal Ur Leukocyte Esterase Neg Urine WBC (Auto) 3 Urine RBC (Auto) < 1
[2018-04-01] MEDS: Sodium Chloride 0.9% 1,000 ML IV SCH (07:45)
--- NOTE | 2018-04-01 08:32 | RAD ---
Date of service: 03/31/2018 PROCEDURE: CHEST RADIOGRAPH, 1 VIEW HISTORY: dizzy COMPARISON: 11/02/2017 FINDINGS: LUNGS: Clear. Lung volumes lower limits of normal. PLEURA: No pneumothorax or pleural fluid seen. CARDIOVASCULAR: There is presence of aortic atherosclerotic calcification on x-ray. Mild cardiomegaly-similar. No appreciate pulmonary venous congestion. 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 OSSEOUS STRUCTURES: No significant abnormalities. VISUALIZED UPPER ABDOMEN: Normal. OTHER FINDINGS: None. IMPRESSION: No acute cardiopulmonary pathology noted Other findings as above.
--- NOTE | 2018-04-01 09:24 | CT ---
Date of service: 03/31/2018 PROCEDURE: CT HEAD WITHOUT CONTRAST. HISTORY: syncope COMPARISON: Comparison is made with 11/06/2017 TECHNIQUE: Axial computed tomography images were obtained through the head/brain without intravenous contrast. Radiation dose: Total exam DLP = 1044.98 mGy-cm. This CT exam was performed using one or more of the following dose reduction techniques: Automated exposure control, adjustment of the mA and/or kV according to patient size, and/or use of iterative reconstruction technique. FINDINGS: HEMORRHAGE: No intracranial hemorrhage. BRAIN: No mass effect or edema. [id number] atrophy and moderate to extensive chronic microvascular white matter ischemic changes are again noted. Chronic lacunar infarcts in the basal ganglia bilaterally more prominent on the right are again noted. Old lacunar infarct at the white matter of the right temporal lobe is again noted. VENTRICLES: Unremarkable. No hydrocephalus. CALVARIUM: Unremarkable. PARANASAL SINUSES: Unremarkable as visualized. No significant inflammatory changes. MASTOID AIR CELLS: Unremarkable as visualized. No inflammatory changes. OTHER FINDINGS: Diffuse atherosclerotic calcification noted in the distal vertebral, basilar and intracranial arteries. IMPRESSION: No evidence of acute intracranial hemorrhage mass effect or midline shift. Volume loss and chronic microvascular white matter ischemic disease. Multiple lacunar chronic infarcts. Diffuse atherosclerotic calcification. Preliminary report was submitted by [facility] Radiology contains concordant findings.
[2018-04-01] MEDS: Pantoprazole 40 mg EC Tab PO SCH (09:47)
[2018-04-01] MEDS ORDERED: Enoxaparin 150 mg Syringe SC SCH (10:00)
--- NOTE | 2018-04-01 10:06 | CT ---
Date of service: 03/31/2018 PROCEDURE: CT Cervical Spine without contrast HISTORY: fall COMPARISON: None available. TECHNIQUE: Axial computed tomography images were obtained of the cervical spine without the use of intravenous contrast. Coronal and sagittal reformatted images were created and reviewed. Radiation dose: Total exam DLP = 199.97 mGy-cm. This CT exam was performed using one or more of the following dose reduction techniques: Automated exposure control, adjustment of the mA and/or kV according to patient size, and/or use of iterative reconstruction technique. FINDINGS: VERTEBRAE: No fracture. Normal alignment. No destructive bony lesion. DISCS/SPINAL CANAL/NEURAL FORAMINA: Six there are moderate endplate and disc degenerative changes more prominent at C6-C7. Posterior osteophyte disc bulge complex at C5-C6 and C6-C7 noted which resulting in mild spinal and neural foraminal narrowing. [id number] narrowing of the intervertebral disc is space at C6-C7 is noted. PARASPINAL SOFT TISSUES: Heterogeneous thyroid gland is noted. There is 1.7 centimeter nodule at the right thyroid lobe. Mildly enlarged lymph nodes noted at the mid and upper neck right more than left. OTHER FINDINGS: None. IMPRESSION: No evidence of acute displaced fracture or subluxation. Moderate degenerative changes more prominent at C6-C7. Additional findings as discussed above. Preliminary report was submitted by [facility] contains concordant findings.
[2018-04-01 10:26] LABS: BASO # 0.1 K/uL (0.0-0.2); BASO % 1.1 % (0.0-2.0); EOS # 0.4 K/uL (0.0-0.7); EOS % 5.7 % (0.0-4.0); HEMOGLOBIN 9.8 g/dL (12.0-18.0); LYMPH # 0.9 K/uL (1.0-4.3); MEAN CELL VOLUME 71.2 fL (80.0-94.0); MEAN CORPUSCULAR HEMOGLOBIN 22.9 pg (27.0-31.0); MEAN CORPUSCULAR HGB CONC 32.1 g/dL (33.0-37.0); MEAN PLATELET VOLUME 8.1 fL (7.2-11.7); MONO # 0.6 K/uL (0.0-0.8); MONO % 9.3 % (0.0-10.0); NEUT # 4.5 K/uL (1.8-7.0); NEUT % 69.9 % (50.0-75.0); RBC 4.27 Mil/uL (4.40-5.90); RED CELL DISTRIBUTION WIDTH 18.2 % (11.5-14.5); WHITE BLOOD COUNT 6.4 K/uL (4.8-10.8)
[2018-04-01 10:43] LABS: ALB/GLOB RATIO 1.1 (1.0-2.1); ALBUMIN 3.6 g/dL (3.5-5.0); ALT/SGPT 15 U/L (21-72); AST/SGOT 23 U/L (17-59); BLOOD UREA NITROGEN 9 mg/dL (9-20); CALCIUM 8.3 mg/dl (8.6-10.4); GFR NON-AFRICAN AMERICAN > 60
[2018-04-01] MEDS: Lacosamide 100 MG Tab PO SCH ×2 (11:56→18:36)
--- NOTE | 2018-04-01 12:55 | CP.PCM.PN ---
Subjective - Date & Time of Evaluation Date of Evaluation: 04/01/18 Time of Evaluation: 09:50 - Subjective Subjective: clinically same Objective - Vital Signs/Intake and Output Vital Signs (last 24 hours): Temp Pulse Resp BP Pulse Ox 98.1 F 63 15 177/81 H 99 03/31/18 19:40 04/01/18 11:59 04/01/18 11:59 04/01/18 11:59 04/01/18 11:59 Intake and Output: 04/01/18 04/01/18 06:59 18:59 Intake Total 2.5 Balance 2.5 - Medications Medications: Current Medications Amlodipine Besylate (Norvasc) 5 mg PO DAILY [facility] Last Admin: 04/01/18 09:47 Dose: 5 mg Aspirin (Aspirin) 325 mg PO DAILY [facility] Last Admin: 04/01/18 09:46 Dose: 325 mg Aspirin (Ecotrin) 81 mg PO DAILY [facility] Last Admin: 04/01/18 09:47 Dose: Not Given Enoxaparin Sodium (Lovenox) 40 mg SC DAILY [facility] Last Admin: 04/01/18 09:46 Dose: 40 mg Sodium Chloride (Sodium Chloride 0.9%) 1,000 mls @ 100 mls/hr IV .Q10H [facility] Last Admin: 04/01/18 07:45 Dose: 100 mls/hr Diltiazem HCl 125 mg/ Sodium (Chloride) 125 mls @ 5 mls/hr IV .Q24H [facility]; Protocol Last Titration: 04/01/18 09:09 Dose: 10 mg/hr, 10 mls/hr Lacosamide (Vimpat) 100 mg PO BID [facility] Last Admin: 04/01/18 11:56 Dose: 100 mg Levetiracetam (Keppra) 750 mg PO BID [facility] Last Admin: 04/01/18 09:46 Dose: 750 mg Oxybutynin Chloride (Ditropan Xl) 5 mg PO DAILY [facility] Last Admin: 04/01/18 09:47 Dose: 5 mg Pantoprazole Sodium (Protonix Ec Tab) 40 mg PO DAILY [facility] Last Admin: 04/01/18 09:47 Dose: 40 mg Rosuvastatin Calcium (Crestor) 5 mg PO [facility] Tamsulosin HCl (Flomax) 0.4 mg PO DAILY [facility] Last Admin: 11/27/18 11:56 Dose: 0.4 mg - Labs Labs: 04/01/18 10:18 04/01/18 10:18 PT 12.5 SECONDS (9.7-12.2) H 03/31/18 20:39 INR 1.1 03/31/18 20:39 APTT 27 SECONDS (21-34) 03/31/18 20:39 - Constitutional Appears: Well - Head Exam Head Exam: ATRAUMATIC, NORMAL INSPECTION, NORMOCEPHALIC - Eye Exam Eye Exam: EOMI, Normal appearance, PERRL Pupil Exam: NORMAL ACCOMODATION, PERRL - ENT Exam ENT Exam: Mucous Membranes Moist, Normal Exam - Neck Exam Neck Exam: Full ROM, Normal Inspection. absent: Lymphadenopathy - Respiratory Exam Respiratory Exam: Decreased Breath Sounds - Cardiovascular Exam Cardiovascular Exam: REGULAR RHYTHM, +S1, +S2 - GI/Abdominal Exam GI & Abdominal Exam: Soft, Diminished Bowel Sounds - Rectal Exam Rectal Exam: Deferred
[2018-04-01] MEDS ORDERED: Enoxaparin 40 mg Syringe SC SCH (15:00)
--- NOTE | 2018-04-01 17:07 | CARD ---
APPROVED REPORT Date of service: 03/31/2018 EKG Measurement Heart [id number] <Conclusion> Atrial-paced rhythm Minimal voltage criteria for LVH, may be normal variant Nonspecific T wave abnormality Abnormal ECG
--- NOTE | 2018-04-01 17:10 | CP.PCM.CON ---
History of Present Illness - History of Present Illness History of Present Illness: 82 year old male with PMHx of HTN and seizure disorder presents to the ED accompanied by his son for evaluation of a syncopal episode and a fall. As per Patient's , patient fell back and hit his head against his walker and passed out for approximately 1 minute. Patient's reports this was not seizure related as his last seizure was a year ago and usually patient is post ictal but this time patient was alert. Patient's son states patient has been losing weight, not eating due to having difficulty swallowing, losing control of his bladder at night. Patient's reports patient wakes up with strong smelling urine. Patient's son reports 10 years ago patient had a fall that resulted in bran bleed which he was supposed to have surgery for but never did. Patient denies fever, chills, nausea, vomit, diarrhea, rash, visual changes, weakness, numbness. Currently patient responds appropriately with lapses in memory and recollection. He knowns his name, family memebrs and location but not or time of day/month/year. PMHX documented; HTN, BPH, seizure disorder CVHX: not well established due to patient conditiion, CXRAY and exam: c/w L. chest PPM placed Review of old records: suggest hx of multiple falls and syncope with diuretic induced hyponatremia in past - Summer 2018: EEG normal, no obstructive carotid disease by doppler Review of Systems - Review of Systems All systems: reviewed and no additional remarkable complaints except Past Patient History - Past Medical History & Family History Past Medical History?: Yes - Past Social History Smoking Status: Never Smoked - CARDIAC Hx Hypercholesterolemia: Yes Hx Hypertension: Yes - NEUROLOGICAL Hx Seizures: Yes - MUSCULOSKELETAL/RHEUMATOLOGICAL Hx Falls: Yes (fell twice at home) - PSYCHIATRIC Hx Substance Use: No Meds Allergies/Adverse Reactions: Allergies Allergy/AdvReac Type Severity Reaction Status Date / Time No Known Allergies Allergy Verified 03/31/18 19:49 - Medications Medications: Current Medications Amlodipine Besylate (Norvasc) 10 mg PO DAILY [facility] Aspirin (Aspirin) 325 mg PO DAILY [facility] Last Admin: 04/01/18 09:46 Dose: 325 mg Aspirin (Ecotrin) 81 mg PO DAILY [facility] Last Admin: 04/01/18 09:47 Dose: Not Given Carvedilol (Coreg) 6.25 mg PO BID [facility] Enoxaparin Sodium (Lovenox) 40 mg SC DAILY [facility] Sodium Chloride (Sodium Chloride 0.9%) 1,000 mls @ 100 mls/hr IV .Q10H [facility] Last Admin: 04/01/18 07:45 Dose: 100 mls/hr Diltiazem HCl 125 mg/ Sodium (Chloride) 125 mls @ 5 mls/hr IV .Q24H [facility]; Protocol Last Titration: 04/01/18 09:09 Dose: 10 mg/hr, 10 mls/hr Lacosamide (Vimpat) 100 mg PO BID [facility] Last Admin: 04/01/18 11:56 Dose: 100 mg Levetiracetam (Keppra) 750 mg PO BID [facility] Last Admin: 04/01/18 09:46 Dose: 750 mg Losartan Potassium (Cozaar) 50 mg PO DAILY [facility] Last Admin: 04/01/18 15:03 Dose: 50 mg Oxybutynin Chloride (Ditropan Xl) 5 mg PO DAILY [facility] Last Admin: 04/01/18 09:47 Dose: 5 mg Pantoprazole Sodium (Protonix Ec Tab) 40 mg PO DAILY [facility] Last Admin: 04/01/18 09:47 Dose: 40 mg Rosuvastatin Calcium (Crestor) 5 mg PO [facility] Tamsulosin HCl (Flomax) 0.4 mg PO DAILY [facility] Last Admin: 04/01/18 11:56 Dose: 0.4 mg Physical Exam - Constitutional Appears: Confused - Head Exam Head Exam: ATRAUMATIC, NORMAL INSPECTION, NORMOCEPHALIC - Eye Exam Eye Exam: EOMI, Normal appearance - ENT Exam ENT Exam: Mucous Membranes Moist, Normal Oropharynx - Neck Exam Neck exam: Positive for: Normal Inspection. Negative for: Tenderness - Respiratory Exam Respiratory Exam: Clear to Auscultation Bilateral, NORMAL BREATHING PATTERN. absent: Rhonchi, Wheezes - Cardiovascular Exam Cardiovascular Exam: REGULAR RHYTHM, +S1, +S2. absent: Gallop, +S4, Systolic Murmur - GI/Abdominal Exam GI & Abdominal Exam: Normal Bowel Sounds, Soft. absent: Organomegaly, Tenderness - Extremities Exam Extremities exam: Positive for: normal inspection, pedal pulses present. Negative for: calf tenderness, joint swelling, pedal edema - Neurological Exam Neurological exam: Altered - Psychiatric Exam Psychiatric exam: Normal Affect, Normal Mood - Skin Skin Exam: Normal Color, Warm Results - Vital Signs Recent Vital Signs: Last Vital Signs Temp 98.1 F 03/31/18 19:40 Pulse 59 L 04/01/18 14:37 Resp 14 04/01/18 14:37 BP 156/67 H 04/01/18 14:37 Pulse Ox 96 04/01/18 14:37 - Labs Result Diagrams: 04/01/18 10:18 04/01/18 10:18 Labs: Laboratory Results - last 24 hr 03/31/18 03/31/18 03/31/18 20:02 20:39 20:39 WBC 6.3 RBC 3.68 L Hgb 8.4 L D Hct 25.8 L MCV 70.0 L D MCH 22.8 L MCHC 32.5 L RDW 18.3 H Plt Count 251 MPV 7.9 Neut % (Auto) 56.8 Lymph % (Auto) 21.5 [place] % (Auto) 12.2 H Eos % (Auto) 8.5 H Baso % (Auto) 1.0 Neut # (Auto) 3.6 Lymph # (Auto) 1.4 [place] # (Auto) 0.8 Eos # (Auto) 0.5 Baso # (Auto) 0.1 PT 12.5 H INR 1.1 APTT 27 Sodium Potassium Chloride Carbon Dioxide Anion Gap BUN Creatinine Est GFR ( Amer) Est GFR (Non-Af Amer) POC Glucose (mg/dL) 130 H Random Glucose Serum Osmolality Calcium Total Bilirubin AST ALT Alkaline Phosphatase Total Creatine Kinase CK-MB (Mass) Troponin I Total Protein Albumin Globulin Albumin/Globulin Ratio Urine Color Urine Clarity Urine pH Ur Specific [place] Urine Protein Urine Glucose (UA) Urine Ketones Urine Blood Urine Nitrate Urine Bilirubin Urine Urobilinogen Ur Leukocyte Esterase Urine WBC (Auto) Urine RBC (Auto) Urine Osmolality 03/31/18 03/31/18 04/01/18 20:39 22:47 04:34 WBC RBC Hgb Hct MCV MCH MCHC RDW Plt Count MPV Neut % (Auto) Lymph % (Auto) [place] % (Auto) Eos % (Auto) Baso % (Auto) Neut # (Auto) Lymph # (Auto) [place] # (Auto) Eos # (Auto) Baso # (Auto) PT INR APTT Sodium 125 L Potassium 2.9 L Chloride 85 L Carbon Dioxide 30 Anion Gap 14 BUN 16 Creatinine 1.0 Est GFR ( Amer) > 60 Est GFR (Non-Af Amer) > 60 POC Glucose (mg/dL) Random Glucose 108 Serum Osmolality Calcium 8.7 Total Bilirubin 0.3 AST 24 ALT 14 L D Alkaline Phosphatase 55 Total Creatine Kinase 90 CK-MB (Mass) 3.53 H Troponin I 0.0220 0.0250 Total Protein 6.9 Albumin 3.9 Globulin 3.0 Albumin/Globulin Ratio 1.3 Urine Color Straw Urine Clarity Clear Urine pH 7.0 Ur Specific [place] 1.003 Urine Protein 1+ H Urine Glucose (UA) Normal Urine Ketones Negative Urine Blood Negative Urine Nitrate Negative Urine Bilirubin Negative Urine Urobilinogen Normal Ur Leukocyte Esterase Neg Urine WBC (Auto) 3 Urine RBC (Auto) < 1 Urine Osmolality 04/01/18 04/01/18 04/01/18 06:31 06:31 10:18 WBC 6.4 RBC 4.27 L Hgb 9.8 L Hct 30.4 L MCV 71.2 L MCH 22.9 L MCHC 32.1 L RDW 18.2 H Plt Count 275 MPV 8.1 Neut % (Auto) 69.9 Lymph % (Auto) 14.0 L [place] % (Auto) 9.3 Eos % (Auto) 5.7 H Baso % (Auto) 1.1 Neut # (Auto) 4.5 Lymph # (Auto) 0.9 L [place] # (Auto) 0.6 Eos # (Auto) 0.4 Baso # (Auto) 0.1 PT INR APTT Sodium Potassium Chloride Carbon Dioxide Anion Gap BUN Creatinine Est GFR ( Amer) Est GFR (Non-Af Amer) POC Glucose (mg/dL) Random Glucose Serum Osmolality 284 Calcium Total Bilirubin AST ALT Alkaline Phosphatase Total Creatine Kinase CK-MB (Mass) Troponin I Total Protein Albumin Globulin Albumin/Globulin Ratio Urine Color Urine Clarity Urine pH Ur Specific [place] Urine Protein Urine Glucose (UA) Urine Ketones Urine Blood Urine Nitrate Urine Bilirubin Urine Urobilinogen Ur Leukocyte Esterase Urine WBC (Auto) Urine RBC (Auto) Urine Osmolality 140 L 04/01/18 10:18 WBC RBC Hgb Hct MCV MCH MCHC RDW Plt Count MPV Neut % (Auto) Lymph % (Auto) [place] % (Auto) Eos % (Auto) Baso % (Auto) Neut # (Auto) Lymph # (Auto) [place] # (Auto) Eos # (Auto) Baso # (Auto) PT INR APTT Sodium 134 Potassium 4.7 Chloride 100 Carbon Dioxide 24 Anion Gap 14 BUN 9 Creatinine 0.7 L Est GFR ( Amer) > 60 Est GFR (Non-Af Amer) > 60 POC Glucose (mg/dL) Random Glucose 145 H Serum Osmolality Calcium 8.3 L Total Bilirubin 0.3 AST 23 ALT 15 L Alkaline Phosphatase 49 Total Creatine Kinase CK-MB (Mass) Troponin I Total Protein 6.8 Albumin 3.6 Globulin 3.2 Albumin/Globulin Ratio 1.1 Urine Color Urine Clarity Urine pH Ur Specific [place] Urine Protein Urine Glucose (UA) Urine Ketones Urine Blood Urine Nitrate Urine Bilirubin Urine Urobilinogen Ur Leukocyte Esterase Urine WBC (Auto) Urine RBC (Auto) Urine Osmolality - EKG Data EKG Interpreted by: Myself - Imaging and Cardiology Chest x-ray Status: Image reviewed by me Assessment & Plan - Assessment and Plan (Free Text) Assessment: 82 y/o Admitted for Syncope/fall// LOC - HTN urgency: Rx in ER with oral meds and cardizem GTT with gradulae improvement from: SBP 208 > 156; now off cardizem drip - Normal creat, normal Na, troponin negative for ACS - I have reviewed recent echo 11/2017: normal LVEF, mild LVH, grade 1 DD, no hemodynamically significant valvular lesions - Current EKG: suggests atrial paced rhythm, normal ventricualr rhythm without acute ischemic changes : Likely hx of sick sinus syndrome requiring PPM placement (dual lead) - Mild anemia noted I feel he has underlying dementia, possible metabolic encepholopathy: cont neuro w/u. CT head was negative for acute infarct or bleed but + atherosclerotic changes and old lacunae. BP is now better: I have ordered and suggested coreg 6.25 BID, Norvasc 10 and losartan 50; Keep BP 140-160 range next 254 hours and then titrate if ok with neuro. DVT prophylaxis - Date & Time Date: 04/01/18 Time: 17:28
--- NOTE | 2018-04-01 19:47 | CON ---
DATE: 04/01/2018 ATTENDING PHYSICIAN: Martina Peace MD LOCATION: In the emergency room, bed 7. REASON FOR CONSULTATION: Change in mental status. CHIEF COMPLAINT: The patient was brought in by family members with the history of change in mental status and fall. HISTORY OF PRESENT ILLNESS: Mr. Annika Peace is an 82-year-old [place] male presenting with syncopal episode associating with a fall at home. He was passed out for about a minute or so. From neurological point of view, he had a known seizure disorder, been on dual antiepileptic drugs as per the history. PAST MEDICAL HISTORY: Seizures, possible stroke, hypertension. PERSONAL HISTORY: Denies smoking or alcohol use. ALLERGIES: NO KNOWN ALLERGIES. REVIEW OF SYSTEM: A 12-point system being reviewed. From neuro, syncopal attack, possible seizures. MEDICATIONS: Aspirin, Crestor, Ditropan, Flomax, Keppra, Lovenox, Norvasc, Protonix, lacosamide PHYSICAL EXAMINATION: VITAL SIGNS: Blood pressure 208/81, mean artery pressure of 123, respiratory rate 18, temperature afebrile. NECK: Supple. No carotid bruits. HEART: Sounds regular. NEUROLOGIC EXAMINATION: Mental status examination, he is oriented to person only. He does not know the place. He follows one-step command. He easily copies. He was not able to follow two-step command. Significant right and left confusion. Speech at times, just one-word answer comes out which may be appropriate, at times it is not appropriate. Cranial nerve examination, responds to visual threat. Pupils reactive. Extraocular movement decreased in all direction. No facial sensory deficit. Facial asymmetry manifesting as flattening of the left nasolabial fold. Hearing is intact. Tongue is midline. Good gag. Motor examination, outstretched hand with eyes closed, no drift noted. Power is symmetric on either side. Tone somewhat increased on his left side to compare with the right side. Deep tendon reflexes, mild hyperreflexia on the left to compare with the right side. Plantars are upgoing on the left side, right side was downgoing. Sensory examination responds to pain symmetrically on both sides. Coordination and gait deferred at this time due to his mental status change. CONCLUSION: Mr. Annika Peace presenting with possible syncopal attack. It could be related to seizures secondary to his hyponatremia versus the ____ seizure disorder with noncompliant or toxic symptom from medication itself. Accelerated hypertension, probably related to central nervous system dysfunction. However, other possible causes to be ruled out. WORKUP: WBC 6.3, hemoglobin 8.4, hematocrit 25.8, platelet 251. PT 12.5, INR 1.1, PTT 27. Sodium 135, potassium 2.9, chloride ____, bicarbonate 30, BUN 16, creatinine 1.0, GFR more than 60, glucose 130, troponin ____, MB fraction 3.53. Urine, proteinuria 1+. RECOMMENDATIONS: 1. Fluid restriction, correct sodium. 2. Correct the blood pressure appropriately with the mechanic field service. 3. EEG. 4. MRI of the brain to rule out any central cause for his syncopal attack as well as SIADH. 5. Fall precaution and EEG to be done to rule out any paroxysmal activities at present. 6. The patient will be followed closely with you. Danny Hammer MD
[2018-04-01 23:31] VITALS: RESP 20
[2018-04-02] MEDS: Enoxaparin 40 mg Syringe SC SCH (10:30)
[2018-04-02] MEDS: Pantoprazole 40 mg EC Tab PO SCH (10:35)
[2018-04-02] MEDS: Lacosamide 100 MG Tab PO SCH ×2 (10:36→17:05)
[2018-04-02 11:26] LABS: BASO # 0.1 K/uL (0.0-0.2); BASO % 1.1 % (0.0-2.0); EOS # 0.5 K/uL (0.0-0.7); EOS % 8.4 % (0.0-4.0); HEMOGLOBIN 9.7 g/dL (12.0-18.0); LYMPH # 0.9 K/uL (1.0-4.3); LYMPH % 16.4 % (20.0-40.0); MEAN CORPUSCULAR HEMOGLOBIN 22.5 pg (27.0-31.0); MEAN CORPUSCULAR HGB CONC 31.7 g/dL (33.0-37.0); MEAN PLATELET VOLUME 8.7 fL (7.2-11.7); MONO # 0.4 K/uL (0.0-0.8); MONO % 7.6 % (0.0-10.0); NEUT # 3.8 K/uL (1.8-7.0); NEUT % 66.5 % (50.0-75.0); RBC 4.29 Mil/uL (4.40-5.90); RED CELL DISTRIBUTION WIDTH 18.6 % (11.5-14.5); WHITE BLOOD COUNT 5.7 K/uL (4.8-10.8)
--- NOTE | 2018-04-02 16:31 | CP.PCM.PN ---
Subjective - Date & Time of Evaluation Date of Evaluation: 04/02/18 Time of Evaluation: 16:29 - Subjective Subjective: Events reviewed Objective - Vital Signs/Intake and Output Vital Signs (last 24 hours): Temp Pulse Resp BP Pulse Ox 97.0 F L 60 20 161/70 H 99 04/02/18 15:00 04/02/18 15:00 04/02/18 15:00 04/02/18 15:00 04/02/18 15:00 Intake and Output: 04/02/18 04/02/18 06:59 18:59 Output Total 250 Balance -250 - Medications Medications: Current Medications Amlodipine Besylate (Norvasc) 10 mg PO DAILY [facility] Last Admin: 04/02/18 10:24 Dose: 10 mg Aspirin (Aspirin) 325 mg PO DAILY [facility] Last Admin: 04/02/18 10:26 Dose: 325 mg Aspirin (Ecotrin) 81 mg PO DAILY [facility] Last Admin: 04/02/18 10:24 Dose: 81 mg Carvedilol (Coreg) 6.25 mg PO BID [facility] Last Admin: 04/02/18 10:28 Dose: 6.25 mg Enoxaparin Sodium (Lovenox) 40 mg SC DAILY [facility] Last Admin: 04/02/18 10:30 Dose: 40 mg Sodium Chloride (Sodium Chloride 0.9%) 1,000 mls @ 100 mls/hr IV .Q10H [facility] Last Admin: 04/01/18 07:45 Dose: 100 mls/hr Lacosamide (Vimpat) 100 mg PO BID [facility] Last Admin: 04/02/18 10:36 Dose: 100 mg Levetiracetam (Keppra) 750 mg PO BID [facility] Last Admin: 04/02/18 10:36 Dose: 750 mg Losartan Potassium (Cozaar) 50 mg PO DAILY [facility] Last Admin: 04/02/18 10:24 Dose: 50 mg Oxybutynin Chloride (Ditropan Xl) 5 mg PO DAILY [facility] Last Admin: 04/02/18 10:25 Dose: 5 mg Pantoprazole Sodium (Protonix Ec Tab) 40 mg PO DAILY [facility] Last Admin: 04/02/18 10:35 Dose: 40 mg Rosuvastatin Calcium (Crestor) 5 mg PO HS [facility] Last Admin: 04/01/18 22:27 Dose: 5 mg Tamsulosin HCl (Flomax) 0.4 mg PO DAILY [facility] Last Admin: 04/02/18 10:24 Dose: 0.4 mg - Labs Labs: 04/02/18 11:22 04/01/18 10:18 PT 12.5 SECONDS (9.7-12.2) H 03/31/18 20:39 INR 1.1 03/31/18 20:39 APTT 27 SECONDS (21-34) 03/31/18 20:39 Assessment and Plan - Assessment and Plan (Free Text) Plan: Physical Exam - Constitutional Appears: Confused - Head Exam Head Exam: ATRAUMATIC, NORMAL INSPECTION, NORMOCEPHALIC - Eye Exam Eye Exam: EOMI, Normal appearance - ENT Exam ENT Exam: Mucous Membranes Moist, Normal Oropharynx - Neck Exam Neck exam: Positive for: Normal Inspection. Negative for: Tenderness - Respiratory Exam Respiratory Exam: Clear to Auscultation Bilateral, NORMAL BREATHING PATTERN. absent: Rhonchi, Wheezes - Cardiovascular Exam Cardiovascular Exam: REGULAR RHYTHM, +S1, +S2. absent: Gallop, +S4, Systolic Mu rmur - GI/Abdominal Exam GI & Abdominal Exam: Normal Bowel Sounds, Soft. absent: Organomegaly, Tenderness - Extremities Exam Extremities exam: Positive for: normal inspection, pedal pulses present. Negative for: calf tenderness, joint swelling, pedal edema - Neurological Exam Neurological exam: Altered - Psychiatric Exam Psychiatric exam: Normal Affect, Normal Mood - Skin Skin Exam: Normal Color, Warm - EKG Data EKG Interpreted by: Myself - Imaging and Cardiology Chest x-ray Status: Image reviewed by me Assessment & Plan - Assessment and Plan (Free Text) Assessment: 82 y/o Admitted for Syncope/fall// LOC - HTN urgency: Rx in ER with oral meds and cardizem GTT with gradulae improvement from: SBP 208 > 156; now off cardizem drip - Normal creat, normal Na, troponin negative for ACS - I have reviewed recent echo 11/2017: normal LVEF, mild LVH, grade 1 DD, no hemodynamically significant valvular lesions - Current EKG: suggests atrial paced rhythm, normal ventricualr rhythm without acute ischemic changes : Likely hx of sick sinus syndrome requiring PPM placement (dual lead) - Mild anemia noted I feel he has underlying dementia, possible metabolic encepholopathy: cont neuro w/u. CT head was negative for acute infarct or bleed but + atherosclerotic changes and old lacunae. BP is now better: Continue coreg 6.25 BID, Norvasc 10 and losartan 50; If BP is trending up tomorrow I would titrate coreg slowly to max dose of 25mg po BID DVT prophylaxis
[2018-04-02] MEDS: Sodium Chloride 0.9% 1,000 ML IV SCH (17:07)
--- NOTE | 2018-04-02 22:11 | CP.PCM.PN ---
Subjective - Date & Time of Evaluation Date of Evaluation: 04/02/18 Time of Evaluation: 11:00 - Subjective Subjective: clinically same Objective - Vital Signs/Intake and Output Vital Signs (last 24 hours): Temp Pulse Resp BP Pulse Ox 97.0 F L 68 20 161/70 H 99 04/02/18 15:00 04/02/18 16:15 04/02/18 15:00 04/02/18 15:00 04/02/18 15:00 Intake and Output: 04/02/18 04/03/18 18:59 06:59 Output Total 600 Balance -600 - Medications Medications: Current Medications Amlodipine Besylate (Norvasc) 10 mg PO DAILY [facility] Last Admin: 04/02/18 10:24 Dose: 10 mg Aspirin (Aspirin) 325 mg PO DAILY [facility] Last Admin: 04/02/18 10:26 Dose: 325 mg Aspirin (Ecotrin) 81 mg PO DAILY [facility] Last Admin: 04/02/18 10:24 Dose: 81 mg Carvedilol (Coreg) 6.25 mg PO BID [facility] Last Admin: 04/02/18 17:06 Dose: 6.25 mg Enoxaparin Sodium (Lovenox) 40 mg SC DAILY [facility] Last Admin: 04/02/18 10:30 Dose: 40 mg Sodium Chloride (Sodium Chloride 0.9%) 1,000 mls @ 100 mls/hr IV .Q10H [facility] Last Admin: 04/02/18 17:07 Dose: Not Given Lacosamide (Vimpat) 100 mg PO BID [facility] Last Admin: 04/02/18 17:05 Dose: 100 mg Levetiracetam (Keppra) 750 mg PO BID [facility] Last Admin: 04/02/18 17:05 Dose: 750 mg Losartan Potassium (Cozaar) 50 mg PO DAILY [facility] Last Admin: 04/02/18 10:24 Dose: 50 mg Oxybutynin Chloride (Ditropan Xl) 5 mg PO DAILY [facility] Last Admin: 04/02/18 10:25 Dose: 5 mg Pantoprazole Sodium (Protonix Ec Tab) 40 mg PO DAILY [facility] Last Admin: 04/02/18 10:35 Dose: 40 mg Rosuvastatin Calcium (Crestor) 5 mg PO HS [facility] Last Admin: 04/02/18 21:18 Dose: Not Given Tamsulosin HCl (Flomax) 0.4 mg PO DAILY [facility] Last Admin: 04/02/18 10:24 Dose: 0.4 mg - Labs Labs: 04/02/18 11:22 04/01/18 10:18 PT 12.5 SECONDS (9.7-12.2) H 03/31/18 20:39 INR 1.1 03/31/18 20:39 APTT 27 SECONDS (21-34) 03/31/18 20:39 - Constitutional Appears: Well - Head Exam Head Exam: ATRAUMATIC, NORMAL INSPECTION, NORMOCEPHALIC - Eye Exam Eye Exam: EOMI, Normal appearance, PERRL Pupil Exam: NORMAL ACCOMODATION, PERRL - ENT Exam ENT Exam: Mucous Membranes Moist, Normal Exam - Neck Exam Neck Exam: Full ROM, Normal Inspection. absent: Lymphadenopathy - Respiratory Exam Respiratory Exam: Decreased Breath Sounds - Cardiovascular Exam Cardiovascular Exam: REGULAR RHYTHM, +S1, +S2 - GI/Abdominal Exam GI & Abdominal Exam: Soft, Diminished Bowel Sounds - Rectal Exam Rectal Exam: Deferred
[2018-04-03 06:52] LABS: BASO # 0.1 K/uL (0.0-0.2); BASO % 1.9 % (0.0-2.0); EOS # 0.5 K/uL (0.0-0.7); EOS % 12.2 % (0.0-4.0); HEMOGLOBIN 9.6 g/dL (12.0-18.0); LYMPH # 1.3 K/uL (1.0-4.3); LYMPH % 28.9 % (20.0-40.0); MEAN CORPUSCULAR HEMOGLOBIN 22.8 pg (27.0-31.0); MEAN CORPUSCULAR HGB CONC 32.6 g/dL (33.0-37.0); MONO # 0.4 K/uL (0.0-0.8); MONO % 10.1 % (0.0-10.0); NEUT # 2.1 K/uL (1.8-7.0); NEUT % 46.9 % (50.0-75.0); RBC 4.19 Mil/uL (4.40-5.90); RED CELL DISTRIBUTION WIDTH 18.9 % (11.5-14.5); WHITE BLOOD COUNT 4.5 K/uL (4.8-10.8)
[2018-04-03] MEDS: Sodium Chloride 0.9% 1,000 ML IV SCH ×4 (07:00→20:45)
[2018-04-03 07:21] LABS: BLOOD UREA NITROGEN 10 mg/dL (9-20); CALCIUM 8.3 mg/dl (8.6-10.4); GFR NON-AFRICAN AMERICAN > 60
[2018-04-03] MEDS: Enoxaparin 40 mg Syringe SC SCH (09:24)
[2018-04-03] MEDS: Pantoprazole 40 mg EC Tab PO SCH (09:24)
[2018-04-03] MEDS: Lacosamide 100 MG Tab PO SCH ×2 (09:27→17:44)
--- NOTE | 2018-04-03 21:46 | CP.PCM.PN ---
Subjective - Date & Time of Evaluation Date of Evaluation: 04/03/18 Time of Evaluation: 10:40 - Subjective Subjective: clinically same Objective - Vital Signs/Intake and Output Vital Signs (last 24 hours): Temp Pulse Resp BP Pulse Ox 97.5 F L 60 20 160/77 H 100 04/03/18 15:00 04/03/18 18:43 04/03/18 15:00 04/03/18 15:00 04/03/18 15:04 - Medications Medications: Current Medications Amlodipine Besylate (Norvasc) 10 mg PO DAILY [facility] Last Admin: 04/03/18 09:24 Dose: 10 mg Aspirin (Aspirin) 325 mg PO DAILY [facility] Last Admin: 04/03/18 09:24 Dose: 325 mg Aspirin (Ecotrin) 81 mg PO DAILY [facility] Carvedilol (Coreg) 6.25 mg PO BID [facility] Last Admin: 04/03/18 17:44 Dose: 6.25 mg Enoxaparin Sodium (Lovenox) 40 mg SC DAILY [facility] Last Admin: 04/03/18 09:24 Dose: 40 mg Sodium Chloride (Sodium Chloride 0.9%) 1,000 mls @ 100 mls/hr IV .Q10H [facility] Last Admin: 04/03/18 15:07 Dose: 100 mls/hr Lacosamide (Vimpat) 100 mg PO BID [facility] Last Admin: 04/03/18 17:44 Dose: 100 mg Levetiracetam (Keppra) 750 mg PO BID [facility] Last Admin: 04/03/18 17:44 Dose: 750 mg Losartan Potassium (Cozaar) 50 mg PO DAILY [facility] Last Admin: 04/03/18 09:24 Dose: 50 mg Oxybutynin Chloride (Ditropan Xl) 5 mg PO DAILY [facility] Last Admin: 04/03/18 09:24 Dose: 5 mg Pantoprazole Sodium (Protonix Ec Tab) 40 mg PO DAILY [facility] Last Admin: 04/03/18 09:24 Dose: 40 mg Rosuvastatin Calcium (Crestor) 5 mg PO HS [facility] Last Admin: 04/03/18 21:35 Dose: 5 mg Tamsulosin HCl (Flomax) 0.4 mg PO DAILY [facility] Last Admin: 04/03/18 09:24 Dose: 0.4 mg - Labs Labs: 04/03/18 06:44 04/03/18 06:44 PT 12.5 SECONDS (9.7-12.2) H 03/31/18 20:39 INR 1.1 03/31/18 20:39 APTT 27 SECONDS (21-34) 03/31/18 20:39 - Constitutional Appears: Well - Head Exam Head Exam: ATRAUMATIC, NORMAL INSPECTION, NORMOCEPHALIC - Eye Exam Eye Exam: EOMI, Normal appearance, PERRL Pupil Exam: NORMAL ACCOMODATION, PERRL - ENT Exam ENT Exam: Mucous Membranes Moist, Normal Exam - Neck Exam Neck Exam: Full ROM, Normal Inspection. absent: Lymphadenopathy - Respiratory Exam Respiratory Exam: Decreased Breath Sounds - Cardiovascular Exam Cardiovascular Exam: REGULAR RHYTHM, +S1, +S2 - GI/Abdominal Exam GI & Abdominal Exam: Soft, Diminished Bowel Sounds - Rectal Exam Rectal Exam: Deferred
[2018-04-04] MEDS: Sodium Chloride 0.9% 1,000 ML IV SCH ×2 (03:20→12:29)
[2018-04-04] MEDS: Lacosamide 100 MG Tab PO SCH ×2 (10:43→18:02)
[2018-04-04] MEDS: Pantoprazole 40 mg EC Tab PO SCH (10:43)
[2018-04-04] MEDS: Enoxaparin 40 mg Syringe SC SCH (10:44)
--- NOTE | 2018-04-04 11:41 | EEG ---
DATE: 04/02/18 This is a 16-channel electroencephalogram of an awake and confused adult. During the study, photic stimulation was performed. Hyperventilation was not performed. The resting electroencephalogram consist of 30 to 40 microvolt diffuse high delta mixed with low theta activities noted at parietal and occipital leads. Anterior fast activities superimposed with 2 to 3 Hz theta activities seen. Intermittent somewhat high amplitude alpha rhythm maintained at left parietal and occipital leads right side some slow activities noted, which mostly is high theta activities, which followed with generalized 2 to 3 Hz of delta activity seen. Intermittent movement artifact contaminated the background rhythm. The photic stimulation did not evoke driving response noted at 2 to 20 Hz. IMPRESSION: This is an abnormal electroencephalogram because of persistent swelling throughout the records, does show bilateral cerebral dysfunction. This probably is secondary to metabolic, vascular or degenerative process. The study also superimposed with the focal slowing noted at the right cortical leads consistent with structural cause. Please correlate the finding with the neurological and radiological studies. Danny Hammer MD
[2018-04-04 15:46] VITALS: BP 148/65; PULSE 64; TEMP 98.2; O2SAT 96
--- NOTE | 2018-04-04 16:50 | CP.PCM.PN ---
Subjective - Date & Time of Evaluation Date of Evaluation: 04/04/18 Time of Evaluation: 16:50 - Subjective Subjective: awake, responsive, no sob or chest pains, NAD. Objective - Vital Signs/Intake and Output Vital Signs (last 24 hours): Temp Pulse Resp BP Pulse Ox 98.2 F 64 20 148/65 96 04/04/18 15:45 04/04/18 15:45 04/04/18 15:45 04/04/18 15:45 04/04/18 15:45 Intake and Output: 04/04/18 04/04/18 06:59 18:59 Intake Total 1840 Output Total 725 Balance 1115 - Medications Medications: Current Medications Amlodipine Besylate (Norvasc) 10 mg PO DAILY [facility] Last Admin: 04/04/18 10:43 Dose: 10 mg Aspirin (Aspirin) 325 mg PO DAILY [facility] Last Admin: 04/04/18 10:43 Dose: 325 mg Carvedilol (Coreg) 6.25 mg PO BID [facility] Last Admin: 04/04/18 10:43 Dose: 6.25 mg Enoxaparin Sodium (Lovenox) 40 mg SC DAILY [facility] Last Admin: 04/04/18 10:44 Dose: 40 mg Hydralazine HCl (Apresoline) 25 mg PO TID [facility] Last Admin: 04/04/18 13:13 Dose: 25 mg Lacosamide (Vimpat) 100 mg PO BID [facility] Last Admin: 04/04/18 10:43 Dose: 100 mg Levetiracetam (Keppra) 750 mg PO BID [facility] Last Admin: 04/04/18 10:43 Dose: 750 mg Losartan Potassium (Cozaar) 50 mg PO DAILY [facility] Last Admin: 04/04/18 10:43 Dose: 50 mg Oxybutynin Chloride (Ditropan Xl) 5 mg PO DAILY [facility] Last Admin: 04/04/18 10:43 Dose: 5 mg Pantoprazole Sodium (Protonix Ec Tab) 40 mg PO DAILY [facility] Last Admin: 04/04/18 10:43 Dose: 40 mg Rosuvastatin Calcium (Crestor) 5 mg PO HS [facility] Last Admin: 04/03/18 21:35 Dose: 5 mg Tamsulosin HCl (Flomax) 0.4 mg PO DAILY [facility] Last Admin: 04/04/18 10:43 Dose: 0.4 mg - Labs Labs: 04/03/18 06:44 04/03/18 06:44 PT 12.5 SECONDS (9.7-12.2) H 03/31/18 20:39 INR 1.1 03/31/18 20:39 APTT 27 SECONDS (21-34) 03/31/18 20:39 Assessment and Plan - Assessment and Plan (Free Text) Assessment: 82 year old male admitted with hypokalemia, hyponatremia, generalized weakness. Seen and examined, awke, alert, no acute confusion. Family refused rehab as recommended by the physical therapyst. Discussed with DR Maximilian Peace, plan to discharge home today as the senior case manager able to talk to the son and will arrange transportation to home. Advised to continue with present meds and follow up in the office in 1 week.
--- NOTE | 2018-04-07 07:47 | PN ---
DATE: 04/04/2018 TIME OF EVALUATION: 07:15 a.m. 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 PHYSICAL EXAMINATION: VITAL SIGNS: Blood pressure 156/73, mean arterial pressure of 100, respiratory rate 18, temperature 98 degrees Fahrenheit, pulse rate 61 and regular. The patient's mentation is somewhat improved to compare with his previous examination. He knows he is in the hospital. He moves both upper extremities as per the command, limited movement of his lower extremities noted. No focal weakness besides his generalized weakness. Deep tendon reflexes have no changes. Plantars are upgoing on both sides. RECOMMENDATION: Continue Keppra and Vimpat for his seizures as recommended. His workup, electroencephalogram does not show any radiographic paroxysmal activities. If medically stable, the patient can be discharged and should have a followup visit with me as outpatient. Danny Hammer MD
--- NOTE | 2018-04-11 13:06 | PQF ---
PROVIDER RESPONSE TEXT: Syncope- etiology hyponatremia and hypokalemia. REVIEWER QUERY TEXT: Symptom Underlying Cause Please document the underlying diagnosis causing the patient?s documented symptom(s) or whether those are insignificant or unable to be further specified. The patient's Clinical Indicators include: SYNCOPE. 1. WITH FALL STRIKING HEAD AGAINST WALKER AT HOME , HEAD INJURY WITH LOSS OF CONCIOUSNESS FOR ONE MINUTE OR SO DOCUMENTATION SEE: ED REPORT. 2. HYPERTENSIVE URGENCY 3. POSSIBLE METABOLIC ENCEPHALOPATHY 4. HYPONATREMIA, HYPOKALEMIA, GENERAL WEAKNESS WITH RECURRENT FALLS HX HTN, ANEMIA, HYPERCHOLESTEREMIA, SEIZURES, PLEASE, CLARIFY ( IF KNOWN) THE ETIOLOGY OF SYNCOPE Query created by: Aria Chan on 04/10/2018 2:30 PM Electronically signed by: Soham HAYWARD 04/11/2018 1:04 PM
== END 2018-04-04 19:35 | disposition home or self-care (01) | DRG 640 ==
LOC: C.ER 19:26 → C.9E 22:16 → C.5S 04-01 12:24 → C.9E 04-01 12:52 → C.6T 04-01 17:14
PROVIDERS: ADMIT Internal Medicine Nephrology; ATTEND Internal Medicine Nephrology
DX: E87.1 Hypo-osmolality and hyponatremia (principal); G93.41 Metabolic encephalopathy; S06.9X1A Unspecified intracranial injury with loss of consciousness of 30 minutes or less, initial encounter; R55 Syncope and collapse; E87.6 Hypokalemia; I16.0 Hypertensive urgency; G40.909 Epilepsy, unspecified, not intractable, without status epilepticus; D64.9 Anemia, unspecified; I10 Essential (primary) hypertension; N40.0 Benign prostatic hyperplasia without lower urinary tract symptoms; R13.10 Dysphagia, unspecified; R29.6 Repeated falls; I67.2 Cerebral atherosclerosis; E78.00 Pure hypercholesterolemia, unspecified; F03.90 Unspecified dementia, unspecified severity, without behavioral disturbance, psychotic disturbance, mood disturbance, and anxiety; W18.30XA Fall on same level, unspecified, initial encounter; W22.09XA Striking against other stationary object, initial encounter; Y92.009 Unspecified place in unspecified non-institutional (private) residence as the place of occurrence of the external cause; Z91.19 Patient's noncompliance with other medical treatment and regimen; Z91.81 History of falling